=== PATIENT | male | born 1975 | race African-American/Black ===

== ENCOUNTER 2016-09-16 23:15 | Emergency (ER) | payer OTHER ==
[2016-09-16 23:23] VITALS: BP 153/95; PULSE 79; TEMP 98.1; BMI 26.6
--- NOTE | 2016-09-17 00:17 | PDOC ---
History of Present Illness - General Chief Complaint: RX Refill Stated Complaint: RX REFILL Time Seen by Provider: 09/16/16 23:27 History Source: Patient Exam Limitations: No Limitations - History of Present Illness Timing/Duration: 1-3 hours Severity: mild Associated Symptoms: reports: malaise. denies: chest pain, cough, diaphoresis, fever/chills, loss of appetite, nausea/vomiting, shortness of breath, weakness Past History - Travel Traveled outside of the country in the last 30 days: No Close contact w/someone who was outside of country & ill: No - Past Medical History Allergies/Adverse Reactions: Allergies Allergy/AdvReac Type Severity Reaction Status Date / Time No Known Allergies Allergy Verified 09/16/16 23:22 Home Medications: Ambulatory Orders Buprenorphine/Naloxone [Suboxone 8Mg/2Mg Sl Film -] 2 each SL DAILY 09/16/16 Anemia: No Asthma: No Cancer: No Cardiac Disorders: No CVA: No COPD: No CHF: No Diabetes: No GI Disorders: No Disorders: No HTN: No Hypercholesterolemia: No Kidney Stones: No Liver Disease: No Suicide Attempt (Hx): No Seizures: No Thyroid Disease: No - Surgical History Abdominal Surgery: No Appendectomy: No Cardiac Surgery: No Cholecystectomy: No Lung Surgery: No Neurologic Surgery: No Orthopedic Surgery: Yes (tendon repair, left hand) - Reproductive History Testicular Surgery: No - Immunization History Td Vaccination: Yes Immunization Up to Date: Yes - Psycho/Social/Smoking Cessation Hx Anxiety: No Suicidal Ideation: No Smoking Status: Yes Smoking History: Current every day smoker Years of Tobacco Use: 10 Have you smoked in the past 12 months: Yes Number of Cigarettes Smoked Daily: 20 Cigars Per Day: 0 Information on smoking cessation initiated: Yes 'Breaking Loose' booklet given: 09/09/15 Hx Alcohol Use: No Drug/Substance Use Hx: No Substance Use Type: None Hx Substance Use Treatment: Yes Review of Systems - Review of Systems Able to Perform ROS?: Yes Comments:: 09/17/16 00:12 CONSTITUTIONAL: +malaise Absent: fever, chills, diaphoresis, generalized weakness, loss of appetite HEENT: Absent: rhinorrhea, nasal congestion, throat pain, throat swelling, difficulty swallowing, mouth swelling, ear pain, eye pain, visual Changes CARDIOVASCULAR: Absent: chest pain, loss of consciousness, palpitations, irregular heart rate, peripheral edema RESPIRATORY: Absent: cough, shortness of breath, dyspnea with exertion, orthopnea, wheezing, stridor, hemoptysis GASTROINTESTINAL: Absent: abdominal pain, abdominal distension, nausea, vomiting, diarrhea, constipation, melena, hematochezia GENITOURINARY: Absent: dysuria, frequency, urgency, hesitancy, hematuria, flank pain, genital pain MUSCULOSKELETAL: Absent: myalgia, arthralgia, joint swelling SKIN: Absent: rash, itching, pallor HEMATOLOGIC/IMMUNOLOGIC: Absent: easy bleeding, easy bruising, lymphadenopathy, frequent infections ENDOCRINE: Absent: unexplained weight gain, unexplained weight loss, heat intolerance, cold intolerance NEUROLOGIC: Absent: headache, focal weakness or paresthesias, dizziness, unsteady gait, seizure, mental status changes, bladder or bowel incontinence PSYCHIATRIC: Absent: anxiety, depression, suicidal or homicidal ideation, hallucinations. Is the patient limited Green[place]ic proficient: No *Physical Exam - Vital Signs Last Vital Signs Temp Pulse Resp BP Pulse Ox 98.1 F 79 20 153/95 98 09/16/16 23:19 09/16/16 23:19 09/16/16 23:19 09/16/16 23:19 09/16/16 23:19 *DC/Admit/Observation/Transfer Diagnosis at time of Disposition: Medication refill - Discharge Dispostion Disposition: HOME Condition at time of disposition: Fair - Referrals Referrals: Cheryl Frazier [Primary Care Provider] - - Patient Instructions Additional Instructions: Please return to [facility] for you Suboxone refill prescription. You were given one dose of Subxone in the ER tonight. Return back to the emergency department if you are experiencing chest pain, shortness of breath. Progress Note - Progress Note Progress Note: 41-year-old male presents to the emergency department requesting for Suboxone 8- 2mg. patient says he was addicted to Percocet from 2 years ago. 2 years ago, he had a procedure done for his left wrist ganglion cyst, 2 months later he lacerated his left thumb extensor tendon and had it repaired. Patient's been on Suboxone for approximately 8 months. His last prescription was written on 2015. Patient's directions were Suboxone film 82 milligrams sublingual twice a day. Prescription was issued by Cheryl Briscoe:from [facility]. He went to [facility] earlier today but says there were no physicians on staff today and was directed to come to the emergency department. Patient is feeling malaise but denies nausea/vomiting, fever/chills/diarrhea, diaphoresis ,dizziness, lightheadedness, headaches, visual disturbance, sore throat, neck pain, back pains, chest pain, shortness of breath, abdominal pains , extremity numbness or tingling sensation.
[2016-09-17] MEDS ORDERED: BUPRENORPHINE/NALOXONE 8 MG/2 MG FILM PACKET SL ONE (00:21)
== END 2016-09-17 00:59 | disposition home or self-care (01) ==
LOC: SUPCPDRO 23:15 → JER 23:15
DX: Z76.0 Encounter for issue of repeat prescription (principal); F17.210 Nicotine dependence, cigarettes, uncomplicated
CPT/HCPCS: 99282-25

== ENCOUNTER 2018-07-25 15:55 | Inpatient (IN) | payer OTHER ==
--- NOTE | 2018-07-25 20:58 | HP ---
COWS - Scale Resting Pulse: 0= [place] 80 or Below Sweatin=Flushed/Facial Moisture Restless Observation: 1= Difficult to Sit Still Pupil Size: 1= Pupils >than Normal Bone or Joint Aches: 4=Acute Joint/Muscle Pain Runny Nose/ Eye Tearin= Runny Nose/Eyes GI Upset > 30mins: 2= Nausea/Diarrhea Tremor Observation: 2= Slight Tremor Visible Yawning Observation: 1= 1-2x During Session Anxiety or Irritability: 2=Irritable/Anxious Goose Flesh Skin: 0=Smooth Skin COWS Score: 17 CIWA Score - Admission Criteria OASAS Guidelines: Admission for Medically Managed Detox: Requires at least one of the followin. CIWA greater than 12 2. Seizures within the past 24 hours 3. Delirium tremens within the past 24 hours 4. Hallucinations within the past 24 hours 5. Acute intervention needed for co occurring medical disorder 6. Acute intervention needed for co occurring psychiatric disorder 7. Severe withdrawal that cannot be handled at a lower level of care (continued vomiting, continued diarrhea, abnormal vital signs) requiring intravenous medication and/or fluids 8. Admission ROS [facility] - [facility] Chief Complaint: C/O WITHDRAWAL SX'S. SEEKING DETOX TXMENT. Allergies/Adverse Reactions: Allergies Allergy/AdvReac Type Severity Reaction Status Date / Time No Known Allergies Allergy Verified 07/25/18 20:08 History of Present Illness: 43 Y.O. MALE WITH HX/O OPIOID DEPENDENCE HERE FOR DETOX. HE IS SELF REFERRED. LAST HERE 08/2015. C/O WITHDRAWAL SX'S. COWS 17. DENIES ANY SIGNIFICANT PERIOD OF CLEAN TIME. REPORTS HX/O OF SBX MAINTENANCE A LITTLE OVER A MONTH AGO BUT WAS DC FROM THE PROGRAM DUE TO ONGOING USE. 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 DENIES HX/O DRUG OVERDOES, SI/HI/AVH, SEIZURE D/O. PMHX- DENIES PSYCH- DENIES Exam Limitations: No Limitations - Ebola screening Have you traveled outside of the country in the last 21 days: No Have you had contact with anyone from an Ebola affected area: No Have you been sick,other than usual withdrawal symptoms: No Do you have a fever: No - Review of Systems Constitutional: Chills, Malaise, Night Sweats, Changes in sleep EENT: reports: No Symptoms Reported Respiratory: reports: No Symptoms reported Cardiac: reports: No Symptoms Reported GI: reports: Nausea, Poor Appetite, Poor Fluid Intake : reports: No Symptoms Reported Musculoskeletal: reports: Back Pain, Joint Pain Integumentary: reports: No Symptoms Reported Neuro: reports: No Symptoms reported Endocrine: reports: No Symptoms Reported Hematology: reports: No Symptoms Reported Psychiatric: reports: Anxious Other Systems: Reviewed and Negative Patient History - Patient Medical History Hx Anemia: No Hx Asthma: No Hx Chronic Obstructive Pulmonary Disease (COPD): No Hx Cancer: No Hx Cardiac Disorders: No Hx Congestive Heart Failure: No Hx Hypertension: No Hx Hypercholesterolemia: No Hx Pacemaker: No HX Cerebrovascular Accident: No Hx Seizures: No Hx Diabetes: No Hx Gastrointestinal Disorders: No Hx Liver Disease: No Hx Genitourinary Disorders: No Hx Sexually Transmitted Disorders: No Hx Renal Disease (ESRD): No Hx Thyroid Disease: No Hx Human Immunodeficiency Virus (HIV): No Hx Hepatitis C: No Hx Depression: No Hx Suicide Attempt: No Hx Bipolar Disorder: No Hx Schizophrenia: No Other Medical History: DENIES - Patient Surgical History Past Surgical History: Yes Hx Neurologic Surgery: No Hx Cataract Extraction: No Hx Cardiac Surgery: No Hx Lung Surgery: No Hx Breast Surgery: No Hx Breast Biopsy: No Hx Abdominal Surgery: No Hx Appendectomy: No Hx Cholecystectomy: No Hx Genitourinary Surgery: No Hx Section: No Hx Orthopedic Surgery: Yes (tendon repair, left hand) Other Surgical History: cyst removed, left wrist - PPD History Previous Implant?: Yes Documented Results: Negative w/proof Implanted On Prior [facility] Admission?: Yes Date: 09/11/15 Results: 0MM PPD to be Administered?: Yes - Smoking Cessation Smoking history: Current every day smoker Have you smoked in the past 12 months: Yes Aproximately how many cigarettes per day: 20 Cigars Per Day: 0 Hx Chewing Tobacco Use: No Initiated information on smoking cessation: Yes 'Breaking Loose' booklet given: 07/25/18 - Substance & Tx. History Hx Alcohol Use: No Hx Substance Use: Yes Substance Use Type: Opiates Hx Substance Use Treatment: Yes (DOES NOT RECALL) - Substances Abused PERCOCET Route: Oral Frequency: Daily Amount used: 120 MG Age of first use: 38 Date of Last Use: 07/24/18 Family Disease History - Family Disease History Family History: Denies Admission Physical Exam BHS - Physical General Appearance: Yes: Appropriately Dressed, Mild Distress, Tremorous (FELT) , Irritable, Anxious HEENTM: Yes: EOMI, Normal ENT Inspection, Normocephalic, Normal Voice, IMANI, Pharynx Normal, Nasal Congestion Respiratory: Yes: Chest Non-Tender, Lungs Clear, Normal Breath Sounds, No Respiratory Distress, No Accessory Muscle Use Neck: Yes: No masses,lesions,Nodules, Supple, Trachea in good position Breast: Yes: Breast Exam Deferred Cardiology: Yes: Regular Rhythm, S1, S2, Tachycardia Abdominal: Yes: Non Tender, Soft, Increased Bowel Sounds Genitourinary: Yes: Within Normal Limits Back: Yes: Normal Inspection Musculoskeletal: Yes: full range of Motion, Gait Steady Extremities: Yes: Normal Capillary Refill, Normal Range of Motion, Non-Tender, Tremors Neurological: Yes: Fully Oriented, Alert, Motor Strength 5/5 Integumentary: Yes: Warm, Moist Lymphatic: Yes: Within Normal Limits - Diagnostic (1) Nicotine dependence Current Visit: Yes Status: Acute Qualifiers: Nicotine product type: cigarettes Substance use status: uncomplicated Qualified Code(s): F17.210 - Nicotine dependence, cigarettes, uncomplicated (2) At risk for dehydration due to poor fluid intake Current Visit: Yes Status: Acute (3) Opioid dependence with withdrawal Current Visit: Yes Status: Acute (4) Cocaine abuse, uncomplicated Current Visit: Yes Status: Acute Cleared for Admission [facility] - Detox or Rehab [facility] Level of Care: Medically Supervised Detox Regimen/Protocol: Methadone Claeared for Rehab Admission: No [facility] Breath Alcohol Content Breath Alcohol Content: 0 Urine Drug Screen - Results Drug Screen Negative: No Urine Drug Screen Results: KEYLA-Cocaine, OXY-Oxycodone
[2018-07-25] MEDS ORDERED: hydrOXYzine PAMOATE 50 MG CAPSULE (FP) PO PRN (21:14)
[2018-07-25] MEDS ORDERED: MAGNESIUM CITRATE 300 ML BOTTLE PO PRN (21:14)
[2018-07-25] MEDS ORDERED: MENTHOL/PHENOL 1 EACH UD MM PRN (21:14)
[2018-07-25] MEDS ORDERED: MAGNESIUM HYDROX 2400MG/30ML ORAL SUSPENSION 30 ML CUP PO PRN (21:14)
[2018-07-25] MEDS ORDERED: METHADONE HCL 10 MG TABLET (FOR DETOX USE ONLY) PO ONE ×2 (21:14→23:00)
[2018-07-25] MEDS ORDERED: NICOTINE POLACRILEX 2 MG GUM BC PRN (21:14)
[2018-07-25] MEDS ORDERED: IBUPROFEN 400 MG TABLET (FP) PO PRN (21:14)
[2018-07-25] MEDS ORDERED: LOPERAMIDE HCL 2 MG CAPSULE PO PRN (21:14)
[2018-07-25] MEDS ORDERED: P-EPHED 60MG/TRIPROLIDI 2.5MG TABLET PO PRN (21:14)
[2018-07-25] MEDS ORDERED: guaiFENesin/D-METHORPHAN HB 10 ML UNIT-DOSE CUPS PO PRN (21:14)
[2018-07-25] MEDS ORDERED: MAG HYDROX/AL HYDROX/SIMETH 30 ML UNIT-DOSE CUP PO PRN (21:14)
[2018-07-25] MEDS ORDERED: ACETAMINOPHEN 325 MG TABLET (FP) PO PRN (21:14)
[2018-07-25] MEDS ORDERED: ONDANSETRON *ODT* 4 MG TABLET SL PRN (21:16)
[2018-07-25] MEDS: diazePAM 5 MG TABLET PO PRN (21:43)
[2018-07-25] MEDS ORDERED: THIAMINE HCL 100 MG TABLET (FP) PO SCH (22:00)
[2018-07-25] MEDS ORDERED: MELATONIN 5 MG TABLETS PO PRN (22:00)
[2018-07-26] MEDS: diazePAM 5 MG TABLET PO PRN ×2 (02:17→10:42)
[2018-07-26] MEDS ORDERED: PRENATAL VITAMINS W/ FOLIC ACID TABLET (FP) PO SCH (10:00)
[2018-07-26] MEDS ORDERED: NICOTINE 21 MG/24 HOURS TOPICAL PATCH TD SCH (10:00)
[2018-07-26] MEDS ORDERED: METHADONE HCL 10 MG TABLET (FOR DETOX USE ONLY) PO ONE (10:00)
[2018-07-26 10:35] LABS: HEMATOCRIT 44.7 % (35.4-49); HEMOGLOBIN 14.6 GM/dL (11.7-16.9); MCH 29.1 pg (25.7-33.7); MCHC 32.6 g/dl (32.0-35.9); MEAN CELL VOLUME 89.2 fl (80-96); MEAN PLT VOLUME 8.5 fl (7.5-11.1); PLATELET COUNT 314 K/MM3 (134-434); RBC 5.01 M/mm3 (4.00-5.60); WHITE BLOOD COUNT 5.7 K/mm3 (4.0-10.0)
--- NOTE | 2018-07-26 11:11 | PN ---
BHS Progress Note (SOAP) Subjective: patient wants suboxone program
[2018-07-26 11:52] LABS: ALBUMIN 3.4 g/dl (3.4-5.0); ALK PHOS 103 U/L (45-117); ANION GAP 10 MMOL/L (8-16); BILIRUBIN,TOTAL 0.2 mg/dL (0.2-1); BLOOD UREA NITROGEN 22 mg/dL (7-18); CALCIUM 8.5 mg/dL (8.5-10.1); CHLORIDE 108 mmol/L (98-107); CO2 26 mmol/L (21-32); CREATININE 1.2 mg/dL (0.55-1.3); GLUCOSE,RANDOM 104 mg/dL (74-106); POTASSIUM 3.9 mmol/L (3.5-5.1); SGOT/AST 13 U/L (15-37); SGPT/ALT 44 U/L (13-61); SODIUM 143 mmol/L (136-145); TOT PROT 6.1 g/dl (6.4-8.2)
--- NOTE | 2018-07-26 12:52 | EKG ---
Test Reason : Blood Pressure : / mmHG Vent. Rate : 082 BPM Atrial Rate : 082 BPM P-R Int : 138 ms QRS Dur : 086 ms QT Int : 346 ms P-R-T Axes : 069 041 010 degrees QTc Int : 404 ms NORMAL SINUS RHYTHM NORMAL ECG WHEN COMPARED WITH ECG OF 13-APR-1999 10:04, ST NO LONGER ELEVATED IN ANTERIOR LEADS INVERTED T WAVES HAVE REPLACED NONSPECIFIC T WAVE ABNORMALITY IN INFERIOR LEADS Confirmed by BERNIE ALCARAZ, GUS ([id number]) on 07/26/2018 12:51:44 PM Referred By: Confirmed By:GUS GIBSB MD
[2018-07-26 13:30] VITALS: BP 113/67; PULSE 100; TEMP 97
--- NOTE | 2018-07-26 15:35 | DS ---
[facility] Detox Discharge Summary Admission Date: 07/25/18 Discharge Date: 07/26/18 - History Present History: Opioid Dependence Additional Comments: 43 years old male admitted on 07/25/18 for opiate withdrawal stabilization insists to leave the detox unit to have suboxone - Physical Exam Results Vital Signs: Vital Signs Temperature 97 F L 07/26/18 13:29 Pulse Rate 100 H 07/26/18 13:29 Respiratory Rate 20 07/26/18 13:29 Blood Pressure 113/67 07/26/18 13:29 O2 Sat by Pulse Oximetry (%) Pertinent Admission Physical Exam Findings: opiate withdrawal sx - Treatment Hospital Course: Detox Protocol Followed, Responded well Patient has Accepted a Rehab Referral to: suboxone maintenance program as per counselor arranged - Medication Discharge Medications: Ambulatory Orders Buprenorphine/Naloxone [Suboxone 8Mg/2Mg Sl Film -] 2 each SL DAILY 09/16/16 - Diagnosis (1) Nicotine dependence Status: Acute Qualifiers: Nicotine product type: cigarettes Substance use status: in withdrawal Qualified Code(s): F17.213 - Nicotine dependence, cigarettes, with withdrawal (2) Opioid dependence with withdrawal Status: Acute - AMA Did Patient Leave Against Medical Advice: Yes
[2018-07-26 19:07] LABS: URINE APPEARANCE TURBID; URINE BILIRUBIN NEGATIVE (<2.0 mg/dL); URINE COLOR AMBER; URINE GLUCOSE (UA) NEGATIVE (NEGATIVE); URINE KETONE NEGATIVE (NEGATIVE); URINE LEUK ESTERASE NEGATIVE (NEGATIVE); URINE NITRITE NEGATIVE (NEGATIVE); URINE PROTEIN NEGATIVE (NEGATIVE); URINE UROBILINOGEN NEGATIVE mg/dL (0.2-1.0)
[2018-07-27] MEDS ORDERED: METHADONE HCL 5 MG TABLET (FOR DETOX USE ONLY) PO ONE (10:00)
[2018-07-28] MEDS ORDERED: METHADONE HCL 5 MG TABLET (FOR DETOX USE ONLY) PO ONE (10:00)
[2018-07-29] MEDS ORDERED: METHADONE HCL 10 MG TABLET (FOR DETOX USE ONLY) PO ONE (10:00)
[2018-07-30] MEDS ORDERED: METHADONE HCL 5 MG TABLET (FOR DETOX USE ONLY) PO ONE (06:00)
== END 2018-07-26 13:49 | disposition left against medical advice (07) | DRG 770 ==
LOC: YASAS 15:55 → Y3N 18:34
PROC: HZ2ZZZZ Detoxification Services for Substance Abuse Treatment (ICD-10-PCS; principal; 2018-07-25)
DX: F11.23 Opioid dependence with withdrawal (principal); F14.10 Cocaine abuse, uncomplicated; F17.210 Nicotine dependence, cigarettes, uncomplicated; Z91.89 Other specified personal risk factors, not elsewhere classified
CPT/HCPCS: 36415; 80053; 81003; 85027; 86593; 93005; 93010

== ENCOUNTER 2019-09-10 08:54 | Inpatient (IN) | payer OTHER ==
[2019-09-10 10:01] VITALS: BMI 27.2
--- NOTE | 2019-09-10 10:52 | HP ---
COWS - Scale Resting Pulse: 0= [place] 80 or Below Sweatin=Flushed/Facial Moisture Restless Observation: 0= Sits Still Pupil Size: 2= Moderately Dilated Bone or Joint Aches: 1= Mild Discomfort Runny Nose/ Eye Tearin= Nasal Congestion GI Upset > 30mins: 1= Stomach Cramp Tremor Observation: 1= Tremor [place], Not Seen Yawning Observation: 0= None Anxiety or Irritability: 1=Feels Anxious/Irritable Goose Flesh Skin: 0=Smooth Skin COWS Score: 9 CIWA Score - Admission Criteria OASAS Guidelines: Admission for Medically Managed Detox: Requires at least one of the followin. CIWA greater than 12 2. Seizures within the past 24 hours 3. Delirium tremens within the past 24 hours 4. Hallucinations within the past 24 hours 5. Acute intervention needed for co occurring medical disorder 6. Acute intervention needed for co occurring psychiatric disorder 7. Severe withdrawal that cannot be handled at a lower level of care (continued vomiting, continued diarrhea, abnormal vital signs) requiring intravenous medication and/or fluids 8. Admitting History and Physical - Admission Chief Complaint: Mr. Cullen is a 44 yo gentleman who has a H of opiate use disorder who presents today requesting admission to detox for use of Heroin, crack cocaine and tobacco. He was treated here in July 2018 for opiate use disorder. He was then at [facility] in September 2018. He states that he has been using street methadone. History of Present Illness: Mr Cullen reports suing Heroin, 2 bundles twice per week. He last used heroin last night. He first used heroin this year. He uses crack cocaine, last use last night and first use a few months ago. He smokes cigarettes, one pack per day. He began smoking at the age of 15 y. His last cigarette was just prior to entering this facility. He uses street methadone. He does not drink alcohol. - Smoking History Smoking history: Current every day smoker Have you smoked in the past 12 months: Yes Aproximately how many cigarettes per day: 20 - Alcohol/Substance Use Hx Alcohol Use: No Admission ROS [facility] Chief Complaint: Mr. Cullen is a 44 yo gentleman who requests admission to detox for use of heroin, crack cocaine and tobacco Allergies/Adverse Reactions: Allergies Allergy/AdvReac Type Severity Reaction Status Date / Time No Known Allergies Allergy Verified 09/10/19 09:56 - Ebola screening Have you traveled outside of the country in the last 21 days: No Have you had contact with anyone from an Ebola affected area: No Do you have a fever: No Patient History - Patient Medical History Hx Anemia: No Hx Asthma: No Hx Chronic Obstructive Pulmonary Disease (COPD): No Hx Cancer: No Hx Cardiac Disorders: No Hx Congestive Heart Failure: No Hx Hypertension: No Hx Hypercholesterolemia: No Hx Pacemaker: No HX Cerebrovascular Accident: No Hx Seizures: No Hx Diabetes: No Hx Gastrointestinal Disorders: No Hx Liver Disease: No Hx Genitourinary Disorders: No Hx Sexually Transmitted Disorders: No Hx Renal Disease (ESRD): No Hx Thyroid Disease: No Hx Human Immunodeficiency Virus (HIV): No Hx Hepatitis C: No Hx Depression: No Hx Suicide Attempt: No Hx Bipolar Disorder: No Hx Schizophrenia: No - Patient Surgical History Past Surgical History: Yes Hx Neurologic Surgery: No Hx Cataract Extraction: No Hx Cardiac Surgery: No Hx Lung Surgery: No Hx Breast Surgery: No Hx Breast Biopsy: No Hx Abdominal Surgery: No Hx Appendectomy: No Hx Cholecystectomy: No Hx Genitourinary Surgery: No Hx Section: No Hx Orthopedic Surgery: Yes (tendon repair, left hand) Other Surgical History: cyst removed, left wrist Anesthesia Reaction: No - PPD History Previous Implant?: No Date: 09/11/15 Results: 0MM - Reproductive History Patient is a Female of Child Bearing Age (11 -55 yrs old): No - Smoking Cessation Smoking history: Current every day smoker Have you smoked in the past 12 months: Yes Aproximately how many cigarettes per day: 20 Cigars Per Day: 0 Hx Chewing Tobacco Use: No Initiated information on smoking cessation: Yes 'Breaking Loose' booklet given: 09/10/19 - Substance & Tx. History Hx Alcohol Use: No Hx Substance Use: Yes Substance Use Type: Cocaine, Heroin Hx Substance Use Treatment: Yes - Substances abused Cocaine Substance route: Smoking Frequency: 1-2 times per week Amount used: 3 grams Age of first use: 44 Date of last use: 09/10/19 Heroin Substance route: Smoking Frequency: 1-2 times per week Amount used: 2 bundles Age of first use: 44 Date of last use: 09/10/19 Admission Physical Exam BHS - Vital Signs Vital Signs: Vital Signs - 24 hr 01/28/20 09:56 Temperature 97.3 F L Pulse Rate 73 Respiratory 18 Rate Blood Pressure 133/96 - Physical General Appearance: Yes: Nourished, Appropriately Dressed HEENTM: Yes: EOMI, Hearing grossly Normal, Normocephalic, IMANI, Pharynx Normal Respiratory: Yes: Lungs Clear, Normal Breath Sounds Neck: Yes: Within Normal Limits, No masses,lesions,Nodules Breast: Yes: Breast Exam Deferred Cardiology: Yes: Regular Rhythm, Regular Rate Abdominal: Yes: Non Tender, Soft Genitourinary: Yes: Within Normal Limits Back: Yes: Normal Inspection Musculoskeletal: Yes: full range of Motion, Gait Steady Extremities: Yes: Normal Inspection, Normal Range of Motion Neurological: Yes: Fully Oriented, Alert, Normal Mood/Affect Integumentary: Yes: Normal Color, Dry, Warm, Other (nails are dry and thickened) Lymphatic: Yes: Within Normal Limits Breathalyzer - Breathalyzer Breathalyzer: 0 Vital Signs - Vital Signs Vital signs refused: No Temperature: 97.3 F Pulse Rate: 73 Respiratory Rate: 18 Blood Pressure: 133/96 BP Location: Left Arm Blood Pressure position: Sitting - Height Height: 6 ft 2 in - Weight Weight: 212 lb Weight measurement method: Standing scale - BMI Body Mass Index (BMI): 27.2 - Bowel Function Bowel Movement: Yes (yesterday) Urine Drug Screen - Test Device Lot number: [id number] Expiration date: 01/11/21 - Control Is test valid?: Yes - Results Drug screen NEGATIVE: No Urine drug screen results: KEYLA-Cocaine, MTD-Methadone Inpatient Rehab Admission - Rehab Decision to Admit Inpatient rehab admission?: No - Initial Determination Are CD services needed?: No Free of communicable disease: Yes Not in need of hospitalization: Yes
[2019-09-10] MEDS ORDERED: MENTHOL/PHENOL 1 EACH UD MM PRN (11:03)
[2019-09-10] MEDS ORDERED: MAG HYDROX/AL HYDROX/SIMETH 30 ML UNIT-DOSE CUP PO PRN (11:03)
[2019-09-10] MEDS ORDERED: BISMUTH SUBSALICYLATE 262 MG/15 ML BTL PO PRN (11:03)
[2019-09-10] MEDS ORDERED: ACETAMINOPHEN 325 MG TABLET (FP) PO PRN ×2 (11:03)
[2019-09-10] MEDS ORDERED: MAGNESIUM CITRATE 300 ML BOTTLE PO PRN (11:03)
[2019-09-10] MEDS ORDERED: MAGNESIUM HYDROX 2400MG/30ML ORAL SUSPENSION 30 ML CUP PO PRN (11:03)
[2019-09-10] MEDS ORDERED: IBUPROFEN 400 MG TABLET (FP) PO PRN (11:03)
[2019-09-10] MEDS ORDERED: METHADONE HCL 10 MG TABLET (FOR DETOX USE ONLY) PO ONE (11:25)
[2019-09-10] MEDS: NICOTINE 21 MG/24 HOURS TOPICAL PATCH TD SCH (12:16)
[2019-09-10] MEDS: cloNIDine HCL 0.1 MG TABLET PO PRN ×2 (12:39→22:17)
[2019-09-10] MEDS: hydrOXYzine PAMOATE 25 MG CAPSULE (FP) PO PRN ×2 (12:39→22:17)
[2019-09-10 15:05] LABS: ALBUMIN 3.7 g/dl (3.4-5.0); BILIRUBIN,TOTAL 0.2 mg/dL (0.2-1); BLOOD UREA NITROGEN 16.2 mg/dL (7-18); CALCIUM 8.6 mg/dL (8.5-10.1); CREATININE 1.1 mg/dL (0.55-1.3); POTASSIUM 3.8 mmol/L (3.5-5.1); TOT PROT 6.7 g/dl (6.4-8.2)
[2019-09-10 15:07] LABS: HEMATOCRIT 44.4 % (35.4-49); HEMOGLOBIN 14.6 GM/dL (11.7-16.9); MCH 29.5 pg (25.7-33.7); MEAN CELL VOLUME 89.5 fl (80-96); MEAN PLT VOLUME 8.2 fl (7.5-11.1); PLATELET COUNT 388 K/MM3 (134-434); RBC 4.96 M/mm3 (4.00-5.60); RDW 13.9 % (11.9-15.9); WHITE BLOOD COUNT 4.6 K/mm3 (4.0-10.0)
[2019-09-10] MEDS: THIAMINE HCL 100 MG TABLET (FP) PO SCH (22:17)
[2019-09-10] MEDS: MELATONIN 5 MG TABLETS PO PRN (22:18)
[2019-09-11] MEDS ORDERED: METHADONE HCL 5 MG TABLET (FOR DETOX USE ONLY) ONE (09:09)
[2019-09-11] MEDS ORDERED: METHADONE HCL 10 MG TABLET (FOR DETOX USE ONLY) ONE (09:09)
[2019-09-11] MEDS ORDERED: METHADONE (DETOX) 20 MG, METHADONE (DETOX) 5 MG PO ONE (10:00)
[2019-09-11] MEDS: PRENATAL VITAMINS W/ FOLIC ACID TABLET (FP) PO SCH (10:26)
[2019-09-11] MEDS: NICOTINE 21 MG/24 HOURS TOPICAL PATCH TD SCH (10:26)
[2019-09-11] MEDS: cloNIDine HCL 0.1 MG TABLET PO PRN ×2 (10:28→18:48)
[2019-09-11] MEDS: hydrOXYzine PAMOATE 25 MG CAPSULE (FP) PO PRN ×2 (10:28→18:48)
--- NOTE | 2019-09-11 11:00 | PN ---
BHS COWS - Scale Resting Pulse: 1= [place] 81-100 Sweatin= Chills/Flushing Restless Observation: 0= Sits Still Pupil Size: 1= Pupils >than Normal Bone or Joint Aches: 0= None Runny Nose/ Eye Tearin= None GI Upset > 30mins: 0= None Tremor Observation of Outstretched Hands: 2= Slight Tremor Visible Yawning Observation: 0= None Anxiety or Irritability: 0= None Goose Flesh Skin: 3=Piloe[place] COWS Score: 8 BHS Progress Note (SOAP) Subjective: 44 years old male admitted on 09/10/19 for opiate withdrawal sx management treating with methadone detox regiment reports finger nails and toe nails chronic fungal infection x 15+ years yellowish nail beds noted power like nail tips clotrimazole to all hands and feet Objective: 09/11/19 11:17 Vital Signs Temperature 97.5 F L 09/11/19 08:48 Pulse Rate 79 09/11/19 08:48 Respiratory Rate 18 09/11/19 08:48 Blood Pressure 137/85 09/11/19 08:48 O2 Sat by Pulse Oximetry (%) Laboratory Last Values WBC 4.6 K/mm3 (4.0-10.0) 09/10/19 11:50 RBC 4.96 M/mm3 (4.00-5.60) 09/10/19 11:50 Hgb 14.6 GM/dL (11.7-16.9) 09/10/19 11:50 Hct 44.4 % (35.4-49) 09/10/19 11:50 MCV 89.5 fl (80-96) 09/10/19 11:50 MCH 29.5 pg (25.7-33.7) 09/10/19 11:50 MCHC 33.0 g/dl (32.0-35.9) 09/10/19 11:50 RDW 13.9 % (11.9-15.9) 09/10/19 11:50 Plt Count 388 K/MM3 (134-434) D 09/10/19 11:50 MPV 8.2 fl (7.5-11.1) 09/10/19 11:50 Sodium 140 mmol/L (136-145) 09/10/19 11:50 Potassium 3.8 mmol/L (3.5-5.1) 09/10/19 11:50 Chloride 105 mmol/L (98-107) 09/10/19 11:50 Carbon Dioxide 31 mmol/L (21-32) 09/10/19 11:50 Anion Gap 4 MMOL/L (8-16) L 09/10/19 11:50 BUN 16.2 mg/dL (7-18) 09/10/19 11:50 Creatinine 1.1 mg/dL (0.55-1.3) 09/10/19 11:50 Est GFR (CKD-EPI)AfAm 94.13 09/10/19 11:50 Est GFR (CKD-EPI)NonAf 81.21 09/10/19 11:50 Random Glucose 86 mg/dL (74-106) 09/10/19 11:50 Calcium 8.6 mg/dL (8.5-10.1) 09/10/19 11:50 Total Bilirubin 0.2 mg/dL (0.2-1) 09/10/19 11:50 AST 10 U/L (15-37) L 09/10/19 11:50 ALT 23 U/L (13-61) 09/10/19 11:50 Alkaline Phosphatase 105 U/L (45-117) 09/10/19 11:50 Total Protein 6.7 g/dl (6.4-8.2) 09/10/19 11:50 Albumin 3.7 g/dl (3.4-5.0) 09/10/19 11:50 RPR Titer Nonreactive (NONREACTIVE) 09/10/19 11:50 lab noted Assessment: 09/11/19 11:17 opiate withdrawal Plan: methadone regimen
[2019-09-11] MEDS: CLOTRIMAZOLE 1% CREAM 15 GM TUBE TP SCH ×3 (13:30→22:11)
[2019-09-11] MEDS: METHOCARBAMOL 500 MG TABLET PO PRN (18:48)
[2019-09-11] MEDS: THIAMINE HCL 100 MG TABLET (FP) PO SCH (22:11)
[2019-09-11] MEDS: MELATONIN 5 MG TABLETS PO PRN (22:12)
[2019-09-12] MEDS: cloNIDine HCL 0.1 MG TABLET PO PRN ×3 (05:54→22:10)
[2019-09-12] MEDS: hydrOXYzine PAMOATE 25 MG CAPSULE (FP) PO PRN ×3 (05:56→22:08)
[2019-09-12] MEDS: METHOCARBAMOL 500 MG TABLET PO PRN ×3 (05:56→22:08)
[2019-09-12] MEDS ORDERED: METHADONE HCL 10 MG TABLET (FOR DETOX USE ONLY) PO ONE (10:00)
[2019-09-12] MEDS: PRENATAL VITAMINS W/ FOLIC ACID TABLET (FP) PO SCH (10:29)
[2019-09-12] MEDS: CLOTRIMAZOLE 1% CREAM 15 GM TUBE TP SCH ×4 (10:29→22:12)
[2019-09-12] MEDS: NICOTINE 21 MG/24 HOURS TOPICAL PATCH TD SCH (10:31)
--- NOTE | 2019-09-12 10:37 | PN ---
BHS COWS - Scale Resting Pulse: 1= [place] 81-100 Sweatin= Chills/Flushing Restless Observation: 0= Sits Still Pupil Size: 1= Pupils >than Normal Bone or Joint Aches: 1= Mild Discomfort Runny Nose/ Eye Tearin= Nasal Congestion GI Upset > 30mins: 0= None Tremor Observation of Outstretched Hands: 1= Tremor [place], Not Seen Yawning Observation: 0= None Anxiety or Irritability: 1=Feels Anxious/Irritable Goose Flesh Skin: 0=Smooth Skin COWS Score: 7 BHS Progress Note (SOAP) Subjective: 44 years old male admitted on 09/10/19 for opiate withdrawal sx management treating with methadone detox regiment doing ok today encourage consistently using clotrimazole topical cream to toe nails and finger nail Objective: 09/12/19 10:40 Vital Signs Temperature 97.3 F L 09/12/19 08:47 Pulse Rate 85 09/12/19 08:47 Respiratory Rate 18 09/12/19 08:47 Blood Pressure 125/83 09/12/19 08:47 O2 Sat by Pulse Oximetry (%) Laboratory Last Values WBC 4.6 K/mm3 (4.0-10.0) 09/10/19 11:50 RBC 4.96 M/mm3 (4.00-5.60) 09/10/19 11:50 Hgb 14.6 GM/dL (11.7-16.9) 09/10/19 11:50 Hct 44.4 % (35.4-49) 09/10/19 11:50 MCV 89.5 fl (80-96) 09/10/19 11:50 MCH 29.5 pg (25.7-33.7) 09/10/19 11:50 MCHC 33.0 g/dl (32.0-35.9) 09/10/19 11:50 RDW 13.9 % (11.9-15.9) 09/10/19 11:50 Plt Count 388 K/MM3 (134-434) D 09/10/19 11:50 MPV 8.2 fl (7.5-11.1) 09/10/19 11:50 Sodium 140 mmol/L (136-145) 09/10/19 11:50 Potassium 3.8 mmol/L (3.5-5.1) 09/10/19 11:50 Chloride 105 mmol/L (98-107) 09/10/19 11:50 Carbon Dioxide 31 mmol/L (21-32) 09/10/19 11:50 Anion Gap 4 MMOL/L (8-16) L 09/10/19 11:50 BUN 16.2 mg/dL (7-18) 09/10/19 11:50 Creatinine 1.1 mg/dL (0.55-1.3) 09/10/19 11:50 Est GFR (CKD-EPI)AfAm 94.13 09/10/19 11:50 Est GFR (CKD-EPI)NonAf 81.21 09/10/19 11:50 Random Glucose 86 mg/dL (74-106) 09/10/19 11:50 Calcium 8.6 mg/dL (8.5-10.1) 09/10/19 11:50 Total Bilirubin 0.2 mg/dL (0.2-1) 09/10/19 11:50 AST 10 U/L (15-37) L 09/10/19 11:50 ALT 23 U/L (13-61) 09/10/19 11:50 Alkaline Phosphatase 105 U/L (45-117) 09/10/19 11:50 Total Protein 6.7 g/dl (6.4-8.2) 09/10/19 11:50 Albumin 3.7 g/dl (3.4-5.0) 09/10/19 11:50 RPR Titer Nonreactive (NONREACTIVE) 09/10/19 11:50 lab noted Assessment: 09/12/19 10:41 opiate withdrawal Plan: methadone regiment
[2019-09-12] MEDS: THIAMINE HCL 100 MG TABLET (FP) PO SCH (22:08)
[2019-09-12] MEDS: MELATONIN 5 MG TABLETS PO PRN (22:08)
[2019-09-13] MEDS: METHOCARBAMOL 500 MG TABLET PO PRN ×2 (06:33→22:05)
[2019-09-13] MEDS: hydrOXYzine PAMOATE 25 MG CAPSULE (FP) PO PRN ×2 (06:33→22:05)
[2019-09-13] MEDS ORDERED: METHADONE HCL 5 MG TABLET (FOR DETOX USE ONLY) ONE (09:20)
[2019-09-13] MEDS ORDERED: METHADONE HCL 10 MG TABLET (FOR DETOX USE ONLY) ONE (09:20)
[2019-09-13] MEDS ORDERED: METHADONE (DETOX) 10 MG, METHADONE (DETOX) 5 MG PO ONE (10:00)
[2019-09-13] MEDS: PRENATAL VITAMINS W/ FOLIC ACID TABLET (FP) PO SCH (10:24)
[2019-09-13] MEDS: NICOTINE 21 MG/24 HOURS TOPICAL PATCH TD SCH (10:25)
[2019-09-13] MEDS: CLOTRIMAZOLE 1% CREAM 15 GM TUBE TP SCH ×4 (10:25→22:06)
--- NOTE | 2019-09-13 12:54 | PN ---
S COWS - Scale Resting Pulse: 0= SC 80 or Below Sweatin= Chills/Flushing Restless Observation: 1= Difficult to Sit Still Pupil Size: 0= Normal to Room Light Bone or Joint Aches: 1= Mild Discomfort Runny Nose/ Eye Tearin= None GI Upset > 30mins: 0= None Tremor Observation of Outstretched Hands: 0= None Yawning Observation: 0= None Anxiety or Irritability: 0= None Goose Flesh Skin: 0=Smooth Skin COWS Score: 3 S Progress Note (SOAP) Subjective: Pt would like to be discharged today, would like to go to [facility]. Mild back pain Objective: 09/13/19 12:51 Vital Signs - 24 hr 09/12/19 09/12/19 09/12/19 12:52 18:36 21:01 Temperature 97.6 F 97.9 F 97.1 F L Pulse Rate 64 68 66 Respiratory 18 17 18 Rate Blood Pressure 103/70 123/83 130/84 09/13/19 09/13/19 09/13/19 00:30 03:30 06:58 Temperature 97.9 F Pulse Rate 67 Respiratory 18 18 18 Rate Blood Pressure 116/72 09/13/19 08:51 Temperature 97.9 F Pulse Rate 78 Respiratory 16 Rate Blood Pressure 107/74 Laboratory Tests 09/10/19 09/10/19 09/10/19 11:50 11:50 11:50 WBC 4.6 RBC 4.96 Hgb 14.6 Hct 44.4 MCV 89.5 MCH 29.5 MCHC 33.0 RDW 13.9 Plt Count 388 D MPV 8.2 Sodium 140 Potassium 3.8 Chloride 105 Carbon Dioxide 31 Anion Gap 4 L BUN 16.2 Creatinine 1.1 Est GFR (CKD-EPI)AfAm 94.13 Est GFR (CKD-EPI)NonAf 81.21 Random Glucose 86 Calcium 8.6 Total Bilirubin 0.2 AST 10 L ALT 23 Alkaline Phosphatase 105 Total Protein 6.7 Albumin 3.7 RPR Titer Nonreactive Gnl: WDWN, in no distress MS: awake, alert, follows complex commands, nl language function Motor: symmetric limb motion Gait: normal 09/13/19 12:52 Assessment: 09/13/19 12:53 1. Opioid withdrawal Plan: 1. Methadone protocol 2. Have counselor discuss discharge plans
[2019-09-13 21:24] VITALS: TEMP 97.9
[2019-09-13] MEDS: THIAMINE HCL 100 MG TABLET (FP) PO SCH (22:05)
[2019-09-13] MEDS: MELATONIN 5 MG TABLETS PO PRN (22:05)
[2019-09-14] MEDS ORDERED: METHADONE HCL 10 MG TABLET (FOR DETOX USE ONLY) PO ONE ×2 (06:00→10:00)
[2019-09-14] MEDS: hydrOXYzine PAMOATE 25 MG CAPSULE (FP) PO PRN (06:03)
[2019-09-14 06:47] VITALS: BP 113/72; PULSE 63
[2019-09-15] MEDS ORDERED: METHADONE HCL 5 MG TABLET (FOR DETOX USE ONLY) PO ONE (06:00)
== END 2019-09-14 07:27 | disposition home or self-care (01) | DRG 773 ==
LOC: YASAS 08:54 → UNDOADMIN 10:19 → Y3N 10:19
PROVIDERS: ADMIT Allergy & Immunology; ATTEND Allergy & Immunology
PROC: HZ2ZZZZ Detoxification Services for Substance Abuse Treatment (ICD-10-PCS; principal; 2019-09-10)
DX: F11.23 Opioid dependence with withdrawal (principal); F17.210 Nicotine dependence, cigarettes, uncomplicated
CPT/HCPCS: 36415; 80053; 85027; 86593; J0735

== ENCOUNTER 2020-10-30 01:27 | Inpatient (IN) | payer OTHER ==
[2020-10-30] MEDS ORDERED: RAPID SEQUENCE INTUBATION KIT NR ONE (01:38)
[2020-10-30] MEDS ORDERED: GLUCAGON 1 MG KIT IVPUSH ONE (01:58)
[2020-10-30] MEDS ORDERED: PROPOFOL 1,000,000 MCG/100 ML VIAL ONE (01:58)
[2020-10-30] MEDS ORDERED: ROCURONIUM BROMIDE 50 MG/5 ML VIAL IVPUSH ONE (01:58)
[2020-10-30] MEDS ORDERED: CALCIUM GLUCONATE 10% - 1,000 MG/10 ML VIAL IVPB ONE (01:58)
[2020-10-30] MEDS ORDERED: ETOMIDATE 40 MG/20 ML VIAL IVPUSH ONE (01:58)
[2020-10-30] MEDS ORDERED: INSULIN REGULAR HUMAN 100 UNITS/ML *VIAL IVPUSH ONE (01:59)
[2020-10-30] MEDS ORDERED: DEXTROSE 50%-WATER - 25 GM/50 ML VIAL IVPUSH ONE (01:59)
[2020-10-30] MEDS ORDERED: PROPOFOL 1,000,000 MCG/100 ML VIAL IVPB SCH (02:00)
[2020-10-30 02:22] LABS: HEMATOCRIT 52.8 % (35.4-49); HEMOGLOBIN 16.5 GM/dL (11.7-16.9); MCH 29.4 pg (25.7-33.7); MCHC 31.3 g/dl (32.0-35.9); MEAN CELL VOLUME 94.2 fl (80-96); MEAN PLT VOLUME 8.4 fl (7.5-11.1); PLATELET COUNT 247 K/MM3 (134-434); RBC 5.61 M/mm3 (4.00-5.60); RDW 14.8 % (11.9-15.9); WHITE BLOOD COUNT 20.6 K/mm3 (4.0-10.0)
[2020-10-30] MEDS ORDERED: NALOXONE HCL 0.4 MG/ML VIAL IVPUSH ONE (02:28)
[2020-10-30 02:29] LABS: VENOUS BASE EXCESS -21.5 mmol/L (-2-2)
[2020-10-30 02:40] LABS: EPI CELLS 9 /uL (0-25.1); HYALINE CASTS 29 /uL (0-3.1); URINE APPEARANCE CLOUDY; URINE BACTERIA 637 /uL (0-1359); URINE BILIRUBIN NEGATIVE (NEGATIVE); URINE COLOR YELLOW; URINE GLUCOSE (UA) TRACE (NEGATIVE); URINE KETONE NEGATIVE (NEGATIVE); URINE LEUK ESTERASE TRACE (NEGATIVE); URINE NITRITE NEGATIVE (NEGATIVE); URINE PROTEIN 3+ (NEGATIVE); URINE RBC 23 /uL (0-23.9); URINE UROBILINOGEN 0.2 mg/dL (0.2-1.0); URINE WBC 622 /uL (0-25.8)
[2020-10-30 02:43] LABS: INR 0.98 (0.83-1.09); PROTHROMBIN TIME (PATIENT) 11.9 SEC (9.7-13.0)
[2020-10-30 02:45] LABS: ACTIVATED PTT 44.3 SECONDS (25.2-36.5); VENOUS PCO2 129.9 mmHg (38-52)
[2020-10-30 02:46] LABS: VENOUS PH 6.749 (7.310-7.410)
[2020-10-30 02:47] LABS: POTASSIUM 4.8 mmol/L (3.5-5.1)
[2020-10-30 02:49] LABS: ALBUMIN 4.3 g/dl (3.4-5.0); BLOOD UREA NITROGEN 16.8 mg/dL (7-18); CALCIUM 10.1 mg/dL (8.5-10.1)
[2020-10-30 02:50] LABS: PHENCYCLIDINE,URINE NEGATIVE ng/ml (CUTOFF=25); URINE AMPHETAMINES NEGATIVE ng/ml (CUTOFF=500)
[2020-10-30 02:52] LABS: CREATININE 3.5 mg/dL (0.55-1.3)
[2020-10-30 02:54] LABS: BILIRUBIN,TOTAL 0.4 mg/dL (0.2-1); TOT PROT 7.9 g/dl (6.4-8.2)
[2020-10-30 03:01] LABS: METHADONE, UR NEGATIVE ng/ml (CUTOFF=300); URINE BARBITURATES NEGATIVE ng/ml (CUTOFF=200); URINE BENZODIAZEPINES NEGATIVE ng/ml (CUTOFF=200)
[2020-10-30 03:01] LABS: ARTERIAL BLOOD GAS BASE EXCESS -18.9 mmol/L (-2-2); ARTERIAL BLOOD GAS PO2 105.1 mmHg (80-100)
[2020-10-30 03:05] LABS: ALLENS TEST POSITIVE
[2020-10-30 03:06] LABS: ARTERIAL BLOOD GAS pH 6.975 (7.350-7.450); VENT MODE A/C; VENT RATE 16
[2020-10-30] MEDS ORDERED: GLUCAGON 1 MG KIT ONE (03:24)
[2020-10-30] MEDS ORDERED: CALCIUM GLUC IN NACL, ISO-OSM 1 GM/50 ML BAG IVPB ONE (03:24)
[2020-10-30] MEDS ORDERED: DEXTROSE 50%-WATER 25 GM/50 ML DISP.SYRIN ONE (03:25)
[2020-10-30 04:05] LABS: LACTIC ACID 16.5 mmol/L (0.4-2.0)
[2020-10-30 04:10] LABS: COCAINE, UR POSITIVE ng/ml (CUTOFF=300)
[2020-10-30 04:11] LABS: OPIATES, URI POSITIVE ng/ml (CUTOFF=300)
[2020-10-30] MEDS ORDERED: SODIUM BICARBONATE 8.4% - 75 MEQ in SODIUM CHLORIDE 0.45% 950 ML IV SCH (04:15)
[2020-10-30] MEDS ORDERED: SODIUM CHLORIDE 1,000 ML IV STA (04:22)
[2020-10-30] MEDS ORDERED: SODIUM CHLORIDE 1,000 ML IV SCH (04:30)
[2020-10-30] MEDS ORDERED: PIPERACILLIN/TAZOB 2.25 GM 2.25 GM in DEXTROSE 5%-WATER - 50 ML IVPB SCH (05:00)
[2020-10-30] MEDS ORDERED: PIPERACILLIN/TAZOB 3.375 GM 3.375 GM in DEXTROSE 5%-WATER - 50 ML IVPB SCH (05:00)
[2020-10-30] MEDS ORDERED: MIDAZOLAM IN 0.9 % SOD.CHLORID 1 MG/1 ML PLAST..BAG ONE (05:31)
[2020-10-30] MEDS ORDERED: HEPARIN NA (PORCINE) 5,000 UNITS/ML 1ML VIAL SQ SCH (06:00)
[2020-10-30 06:36] LABS: ARTERIAL BLD GAS O2 SATURATION 99.1 mmHg (95-98); ARTERIAL BLOOD GAS BASE EXCESS -8.4 mmol/L (-2-2); ARTERIAL BLOOD GAS pH 7.275 (7.350-7.450)
[2020-10-30 06:37] LABS: ALLENS TEST POSITIVE
[2020-10-30 06:38] LABS: VENT MODE A/C; VENT RATE 25
[2020-10-30] MEDS: NOREPINEPHRINE BITARTRATE 16,000 MCG in SODIUM CHLORIDE 484 ML IV SCH (06:45)
[2020-10-30 07:16] LABS: BASO % 0.1 % (0-2.0); EOS % 0.1 % (0-4.5); HEMATOCRIT 43.4 % (35.4-49); HEMOGLOBIN 14.4 GM/dL (11.7-16.9); LYMPH % 13.4 % (8-40); MCH 29.7 pg (25.7-33.7); MCHC 33.2 g/dl (32.0-35.9); MEAN CELL VOLUME 89.6 fl (80-96); MEAN PLT VOLUME 7.7 fl (7.5-11.1); MONO % 4.5 % (3.8-10.2); NEUT % 81.9 % (42.8-82.8); PLATELET COUNT 150 K/MM3 (134-434); RBC 4.84 M/mm3 (4.00-5.60); WHITE BLOOD COUNT 17.3 K/mm3 (4.0-10.0)
[2020-10-30 07:31] LABS: CHLORIDE 114 mmol/L (98-107); POTASSIUM 4.4 mmol/L (3.5-5.1); SODIUM 145 mmol/L (136-145)
[2020-10-30 07:34] LABS: ANION GAP 9 MMOL/L (8-16); BLOOD UREA NITROGEN 21.5 mg/dL (7-18); CO2 22 mmol/L (21-32); GLUCOSE,RANDOM 52 mg/dL (74-106); MAGNESIUM 2.2 mg/dL (1.8-2.4)
[2020-10-30 07:36] LABS: CREATININE 2.8 mg/dL (0.55-1.3); SGOT/AST 397 U/L (15-37); SGPT/ALT 443 U/L (13-61)
[2020-10-30 07:37] LABS: PHOSPHOROUS 4.7 mg/dL (2.5-4.9)
[2020-10-30 07:38] LABS: BILIRUBIN,TOTAL 0.3 mg/dL (0.2-1)
[2020-10-30 07:41] LABS: LACTIC ACID 6.3 mmol/L (0.4-2.0)
[2020-10-30] MEDS ORDERED: PHENYLEPHRINE HCL 10 MG/1 ML SINGLE DOSE VIAL ONE (07:44)
[2020-10-30] MEDS ORDERED: PHENYLEPHRINE NS PREMIX 10,000 MCG/100 ML BAG CVP SCH (07:45)
[2020-10-30] MEDS ORDERED: SODIUM CHLORIDE 0.9% 500 ML INFUS.BAG IV ONE (07:54)
[2020-10-30 07:57] LABS: ALK PHOS 95 U/L (45-117); CALCIUM 7.5 mg/dL (8.5-10.1); TOT PROT 5.4 g/dl (6.4-8.2)
[2020-10-30] MEDS: PHENYLEPHRINE NS PREMIX 50,000 MCG/500 ML BAG CVP SCH (08:10)
[2020-10-30] MEDS ORDERED: DOBUTAMINE 250 MG/D5W - 250,000 MCG/250 ML INFUS.BAG ONE (08:21)
[2020-10-30] MEDS ORDERED: DEXTROSE 5%-WATER - 50 ML IVPB ONE ×3 (08:23→21:53)
[2020-10-30] MEDS ORDERED: PIPERACILLIN/TAZOBACTAM 2.25 GM VIAL IVPB ONE ×3 (08:23→21:52)
[2020-10-30] MEDS: FLUDROCORTISONE ACETATE 0.1 MG TABLET (FP) PO SCH (08:30)
[2020-10-30] MEDS: HYDROCORTISONE SOD SUCCINATE 100 MG/2 ML VIAL IVPB SCH ×4 (08:30→21:54)
[2020-10-30] MEDS: D5W IV SCH (08:35)
[2020-10-30] MEDS: DOBUTAMINE IV SCH (08:35)
[2020-10-30] MEDS ORDERED: MIDAZOLAM HCL 2 MG/2 ML SINGLE DOSE VIAL ONE (08:39)
[2020-10-30] MEDS ORDERED: MIDAZOLAM HCL 2 MG/2 ML SINGLE DOSE VIAL IVPUSH ONE (09:00)
[2020-10-30] MEDS: PANTOPRAZOLE SODIUM 80 MG in SODIUM CHLORIDE 100 ML IVPB SCH (09:16)
[2020-10-30 09:35] LABS: BASO % 0.1 % (0-2.0); LYMPH % 14.9 % (8-40); MCH 29.4 pg (25.7-33.7); MCHC 32.6 g/dl (32.0-35.9); MEAN CELL VOLUME 90.2 fl (80-96); MEAN PLT VOLUME 8.2 fl (7.5-11.1); MONO % 4.5 % (3.8-10.2); NEUT % 80.5 % (42.8-82.8); PLATELET COUNT 84 K/MM3 (134-434); RDW 14.1 % (11.9-15.9); WHITE BLOOD COUNT 17.5 K/mm3 (4.0-10.0)
[2020-10-30 09:50] LABS: MAGNESIUM 2.3 mg/dL (1.8-2.4)
[2020-10-30 09:55] LABS: PHOSPHOROUS 3.8 mg/dL (2.5-4.9)
[2020-10-30] MEDS ORDERED: VANCOMYCIN/WATER BAGS 1,250 MG/250 ML BAG IVPB ONE (11:15)
[2020-10-30] MEDS: MUPIROCIN 2% TOPICAL OINTMENT FOR DECOLONIZATION NS SCH ×2 (12:22→21:55)
[2020-10-30] MEDS ORDERED: ACETAMINOPHEN 1000 MG/100 ML VIAL (NON FORMULARY) IVPB PRN (12:47)
[2020-10-30] MEDS: MIDAZOLAM 100 MG in SODIUM CHLORIDE 100 ML IVPB SCH (13:00)
[2020-10-30 13:14] LABS: ARTERIAL BLD GAS O2 SATURATION 97.1 mmHg (95-98); ARTERIAL BLOOD GAS BASE EXCESS -8.4 mmol/L (-2-2); ARTERIAL BLOOD GAS PO2 103.8 mmHg (80-100); ARTERIAL BLOOD GAS pH 7.279 (7.350-7.450)
[2020-10-30 13:18] LABS: VENT MODE A/C; VENT RATE 25
[2020-10-30] MEDS: DEXMEDETOMIDINE IN 0.9 % NACL 400 MCG/100 ML VIAL IVPB SCH (13:47)
[2020-10-30] MEDS ORDERED: PT OWN MED DRAWER 7, Y5N ONE ×3 (14:48→17:46)
[2020-10-30] MEDS: PIPERACILLIN/TAZOB 2.25 GM 2.25 GM in DEXTROSE 5%-WATER - 50 ML IVPB SCH ×2 (14:54→21:54)
[2020-10-30] MEDS: LACTATED RINGERS SOLUTION 1,000 ML/1,000 ML INFUS.BAG IV SCH (18:23)
[2020-10-30 19:18] LABS: EPI CELLS 8 /uL (0-25.1); HYALINE CASTS 3 /uL (0-3.1); URINE APPEARANCE CLOUDY; URINE BACTERIA 37 /uL (0-1359); URINE BILIRUBIN NEGATIVE (NEGATIVE); URINE COLOR YELLOW; URINE GLUCOSE (UA) NEGATIVE (NEGATIVE); URINE KETONE NEGATIVE (NEGATIVE); URINE LEUK ESTERASE NEGATIVE (NEGATIVE); URINE NITRITE NEGATIVE (NEGATIVE); URINE PROTEIN 1+ (NEGATIVE); URINE RBC 18 /uL (0-23.9); URINE UROBILINOGEN 0.2 mg/dL (0.2-1.0); URINE WBC 11 /uL (0-25.8)
[2020-10-30] MEDS: CHLORHEXIDINE GLUCONATE 4% CLEANSER FOR DECOLONIZATION TP SCH (21:55)
[2020-10-31] MEDS ORDERED: PROPOFOL 1,000,000 MCG/100 ML VIAL ONE (03:08)
[2020-10-31] MEDS: PROPOFOL 1,000,000 MCG/100 ML VIAL IVPB SCH (03:28)
[2020-10-31] MEDS ORDERED: DEXTROSE 5%-WATER - 50 ML IVPB ONE ×5 (03:54→21:33)
[2020-10-31] MEDS ORDERED: PIPERACILLIN/TAZOBACTAM 2.25 GM VIAL IVPB ONE ×5 (03:54→21:33)
[2020-10-31] MEDS: PIPERACILLIN/TAZOB 2.25 GM 2.25 GM in DEXTROSE 5%-WATER - 50 ML IVPB SCH ×4 (03:56→22:01)
[2020-10-31] MEDS: HYDROCORTISONE SOD SUCCINATE 100 MG/2 ML VIAL IVPB SCH ×4 (03:56→22:01)
[2020-10-31] MEDS: PANTOPRAZOLE SODIUM 80 MG in SODIUM CHLORIDE 100 ML IVPB SCH ×2 (04:46→17:03)
[2020-10-31 06:53] LABS: HEMATOCRIT 43.9 % (35.4-49); HEMOGLOBIN 14.6 GM/dL (11.7-16.9); MCH 29.7 pg (25.7-33.7); MCHC 33.2 g/dl (32.0-35.9); MEAN CELL VOLUME 89.5 fl (80-96); MEAN PLT VOLUME 8.6 fl (7.5-11.1); PLATELET COUNT 156 K/MM3 (134-434); RBC 4.91 M/mm3 (4.00-5.60); RDW 14.1 % (11.9-15.9); WHITE BLOOD COUNT 12.3 K/mm3 (4.0-10.0)
[2020-10-31 07:09] LABS: POTASSIUM 4.2 mmol/L (3.5-5.1)
[2020-10-31 07:12] LABS: CALCIUM 8.3 mg/dL (8.5-10.1)
[2020-10-31 07:13] LABS: BLOOD UREA NITROGEN 19.4 mg/dL (7-18)
[2020-10-31 07:16] LABS: CREATININE 1.7 mg/dL (0.55-1.3)
[2020-10-31 07:17] LABS: BILIRUBIN,TOTAL 0.5 mg/dL (0.2-1)
[2020-10-31 07:18] LABS: TOT PROT 5.3 g/dl (6.4-8.2)
[2020-10-31] MEDS ORDERED: PT OWN MED DRAWER 7, Y5N ONE ×3 (08:06→15:34)
[2020-10-31] MEDS ORDERED: MIDAZOLAM IN 0.9 % SOD.CHLORID 1 MG/1 ML PLAST..BAG ONE ×2 (08:40→19:35)
[2020-10-31] MEDS: MIDAZOLAM 100 MG in SODIUM CHLORIDE 100 ML IVPB SCH (10:00)
[2020-10-31] MEDS: NOREPINEPHRINE BITARTRATE 16,000 MCG in SODIUM CHLORIDE 484 ML IV SCH (10:57)
[2020-10-31] MEDS: D5W IV SCH (10:58)
[2020-10-31] MEDS: DOBUTAMINE IV SCH (10:58)
[2020-10-31] MEDS: DEXMEDETOMIDINE IN 0.9 % NACL 400 MCG/100 ML VIAL IVPB SCH (11:00)
[2020-10-31] MEDS: PHENYLEPHRINE NS PREMIX 50,000 MCG/500 ML BAG CVP SCH (11:02)
[2020-10-31] MEDS: MUPIROCIN 2% TOPICAL OINTMENT FOR DECOLONIZATION NS SCH ×2 (11:04→22:08)
[2020-10-31] MEDS: FLUDROCORTISONE ACETATE 0.1 MG TABLET (FP) PO SCH (11:08)
[2020-10-31 13:10] LABS: HEP B CORE AB, TOT Negative (Negative)
[2020-10-31] MEDS ORDERED: MANNITOL 25% 12.5 GM/50 ML VIAL IVPB SCH (14:00)
[2020-10-31 15:07] LABS: ARTERIAL BLD GAS O2 SATURATION 93.8 mmHg (95-98); ARTERIAL BLOOD GAS BASE EXCESS -3.6 mmol/L (-2-2); ARTERIAL BLOOD GAS PO2 66.6 mmHg (80-100); ARTERIAL BLOOD GAS pH 7.417 (7.350-7.450)
[2020-10-31 15:08] LABS: ALLENS TEST POSITIVE
[2020-10-31 15:09] LABS: VENT MODE AC; VENT RATE 32
[2020-10-31] MEDS: LACTATED RINGERS SOLUTION 1,000 ML/1,000 ML INFUS.BAG IV SCH (19:15)
[2020-10-31 21:37] LABS: ARTERIAL BLD GAS O2 SATURATION 93.2 mmHg (95-98); ARTERIAL BLOOD GAS BASE EXCESS -2.1 mmol/L (-2-2); ARTERIAL BLOOD GAS PO2 61.3 mmHg (80-100); ARTERIAL BLOOD GAS pH 7.465 (7.350-7.450)
[2020-10-31 21:47] LABS: VENT MODE A/C; VENT RATE 32
[2020-10-31] MEDS: CHLORHEXIDINE GLUCONATE 4% CLEANSER FOR DECOLONIZATION TP SCH (22:08)
[2020-10-31] MEDS: WATER IVPB SCH (22:35)
[2020-10-31] MEDS: MANNITOL IVPB SCH (22:35)
[2020-10-31] MEDS: DEXTROSE 5% IVPB SCH (22:35)
[2020-11-01] MEDS ORDERED: PIPERACILLIN/TAZOBACTAM 2.25 GM VIAL IVPB ONE ×4 (02:20→20:12)
[2020-11-01] MEDS ORDERED: DEXTROSE 5%-WATER - 50 ML IVPB ONE ×4 (02:21→20:12)
[2020-11-01] MEDS: PIPERACILLIN/TAZOB 2.25 GM 2.25 GM in DEXTROSE 5%-WATER - 50 ML IVPB SCH ×4 (02:32→20:33)
[2020-11-01] MEDS: HYDROCORTISONE SOD SUCCINATE 100 MG/2 ML VIAL IVPB SCH ×4 (02:32→20:32)
[2020-11-01] MEDS: PROPOFOL 1,000,000 MCG/100 ML VIAL IVPB SCH ×3 (04:30→17:03)
[2020-11-01] MEDS: PANTOPRAZOLE SODIUM 80 MG in SODIUM CHLORIDE 100 ML IVPB SCH ×3 (06:28→17:02)
[2020-11-01 06:30] LABS: HEMATOCRIT 43.8 % (35.4-49); MCH 30.1 pg (25.7-33.7); MCHC 34.3 g/dl (32.0-35.9); MEAN CELL VOLUME 87.7 fl (80-96); MEAN PLT VOLUME 8.8 fl (7.5-11.1); PLATELET COUNT 148 K/MM3 (134-434); RDW 13.8 % (11.9-15.9); WHITE BLOOD COUNT 11.5 K/mm3 (4.0-10.0)
[2020-11-01 06:39] LABS: ARTERIAL BLD GAS O2 SATURATION 95.3 mmHg (95-98); ARTERIAL BLOOD GAS BASE EXCESS -2.1 mmol/L (-2-2); ARTERIAL BLOOD GAS PO2 72.9 mmHg (80-100); ARTERIAL BLOOD GAS pH 7.435 (7.350-7.450)
[2020-11-01 06:40] LABS: VENT MODE A/C; VENT RATE 32
[2020-11-01 06:54] LABS: POTASSIUM 4.3 mmol/L (3.5-5.1)
[2020-11-01 06:57] LABS: BLOOD UREA NITROGEN 15.5 mg/dL (7-18); CALCIUM 8.8 mg/dL (8.5-10.1)
[2020-11-01] MEDS: NOREPINEPHRINE BITARTRATE 16,000 MCG in SODIUM CHLORIDE 484 ML IV SCH ×2 (07:00→11:35)
[2020-11-01 07:01] LABS: CREATININE 1.4 mg/dL (0.55-1.3)
[2020-11-01 07:02] LABS: BILIRUBIN,TOTAL 0.8 mg/dL (0.2-1); TOT PROT 5.7 g/dl (6.4-8.2)
[2020-11-01] MEDS ORDERED: NICARDIPINE 25 MG in DEXTROSE 5%-WATER - 240 ML IVPB SCH (07:15)
[2020-11-01] MEDS: PHENYLEPHRINE NS PREMIX 50,000 MCG/500 ML BAG CVP SCH (08:15)
[2020-11-01] MEDS ORDERED: PT OWN MED DRAWER 7, Y5N ONE (08:57)
[2020-11-01] MEDS: FLUDROCORTISONE ACETATE 0.1 MG TABLET (FP) PO SCH (09:03)
[2020-11-01] MEDS: MUPIROCIN 2% TOPICAL OINTMENT FOR DECOLONIZATION NS SCH ×2 (09:04→22:05)
[2020-11-01] MEDS: DEXTROSE 5% IVPB SCH (10:00)
[2020-11-01] MEDS: MANNITOL IVPB SCH (10:00)
[2020-11-01] MEDS: WATER IVPB SCH (10:00)
[2020-11-01] MEDS ORDERED: metoPROLOL SUCCINATE 25 MG TAB.SR.24H (FP) PO SCH (10:15)
[2020-11-01] MEDS: MANNITOL 25% 12.5 GM/50 ML VIAL IVPB SCH ×2 (11:13→22:07)
[2020-11-01] MEDS: LACTATED RINGERS SOLUTION 1,000 ML/1,000 ML INFUS.BAG IV SCH (11:32)
[2020-11-01] MEDS ORDERED: SODIUM CHLORIDE 0.45% 1,000 ML IV SCH (11:45)
[2020-11-01] MEDS: MIDAZOLAM 100 MG in SODIUM CHLORIDE 100 ML IVPB SCH ×2 (13:00→13:50)
[2020-11-01] MEDS: DEXMEDETOMIDINE IN 0.9 % NACL 400 MCG/100 ML VIAL IVPB SCH ×2 (13:00→13:43)
[2020-11-01] MEDS ORDERED: MIDAZOLAM IN 0.9 % SOD.CHLORID 1 MG/1 ML PLAST..BAG ONE (13:49)
[2020-11-01 15:19] LABS: ALLENS TEST NEGATIVE; ARTERIAL BLD GAS O2 SATURATION 95.2 mmHg (95-98); ARTERIAL BLOOD GAS BASE EXCESS 0.4 mmol/L (-2-2); ARTERIAL BLOOD GAS PO2 68.3 mmHg (80-100); ARTERIAL BLOOD GAS pH 7.494 (7.350-7.450)
[2020-11-01 15:20] LABS: VENT MODE AC; VENT RATE 32
[2020-11-01] MEDS: CHLORHEXIDINE GLUCONATE 4% CLEANSER FOR DECOLONIZATION TP SCH (22:05)
[2020-11-02] MEDS ORDERED: PIPERACILLIN/TAZOBACTAM 2.25 GM VIAL IVPB ONE ×4 (01:58→21:15)
[2020-11-02] MEDS ORDERED: DEXTROSE 5%-WATER - 50 ML IVPB ONE ×4 (01:58→21:15)
[2020-11-02] MEDS: PIPERACILLIN/TAZOB 2.25 GM 2.25 GM in DEXTROSE 5%-WATER - 50 ML IVPB SCH ×4 (02:43→21:26)
[2020-11-02] MEDS: HYDROCORTISONE SOD SUCCINATE 100 MG/2 ML VIAL IVPB SCH ×4 (02:43→21:29)
[2020-11-02] MEDS: PROPOFOL 1,000,000 MCG/100 ML VIAL IVPB SCH ×3 (03:15→18:51)
[2020-11-02] MEDS: PANTOPRAZOLE SODIUM 80 MG in SODIUM CHLORIDE 100 ML IVPB SCH ×2 (04:15→21:24)
[2020-11-02 06:22] LABS: ARTERIAL BLOOD GAS BASE EXCESS -1.1 mmol/L (-2-2); ARTERIAL BLOOD GAS PO2 80.9 mmHg (80-100); ARTERIAL BLOOD GAS pH 7.511 (7.350-7.450)
[2020-11-02 06:24] LABS: VENT MODE A/C; VENT RATE 32
[2020-11-02 07:19] LABS: BASO % 0.1 % (0-2.0); EOS % 0.1 % (0-4.5); HEMATOCRIT 41.5 % (35.4-49); LYMPH % 14.5 % (8-40); MCHC 33.8 g/dl (32.0-35.9); MEAN CELL VOLUME 88.8 fl (80-96); MEAN PLT VOLUME 9.4 fl (7.5-11.1); MONO % 7.5 % (3.8-10.2); NEUT % 77.8 % (42.8-82.8); PLATELET COUNT 115 K/MM3 (134-434); RBC 4.67 M/mm3 (4.00-5.60); RDW 13.8 % (11.9-15.9); WHITE BLOOD COUNT 8.7 K/mm3 (4.0-10.0)
[2020-11-02 07:47] LABS: POTASSIUM 3.4 mmol/L (3.5-5.1)
[2020-11-02 07:52] LABS: CALCIUM 8.7 mg/dL (8.5-10.1)
[2020-11-02 07:53] LABS: ALBUMIN 2.7 g/dl (3.4-5.0); BLOOD UREA NITROGEN 15.8 mg/dL (7-18); MAGNESIUM 2.2 mg/dL (1.8-2.4)
[2020-11-02 07:55] LABS: BILIRUBIN,TOTAL 0.7 mg/dL (0.2-1); CREATININE 1.3 mg/dL (0.55-1.3); PHOSPHOROUS 1.9 mg/dL (2.5-4.9); TOT PROT 5.4 g/dl (6.4-8.2)
[2020-11-02] MEDS: MUPIROCIN 2% TOPICAL OINTMENT FOR DECOLONIZATION NS SCH ×2 (09:11→21:26)
[2020-11-02] MEDS: FLUDROCORTISONE ACETATE 0.1 MG TABLET (FP) PO SCH (09:11)
[2020-11-02] MEDS: NOREPINEPHRINE BITARTRATE 16,000 MCG in SODIUM CHLORIDE 484 ML IV SCH (09:14)
[2020-11-02] MEDS: MANNITOL 25% 12.5 GM/50 ML VIAL IVPB SCH ×2 (09:17→22:31)
[2020-11-02] MEDS: KCL 10 MEQ IVPB 10 MEQ/100 ML INFUS.BAG IVPB SCH ×3 (09:23→11:52)
[2020-11-02] MEDS ORDERED: MIDAZOLAM IN 0.9 % SOD.CHLORID 1 MG/1 ML PLAST..BAG ONE (10:24)
[2020-11-02] MEDS: PHENYLEPHRINE NS PREMIX 50,000 MCG/500 ML BAG CVP SCH (10:50)
[2020-11-02] MEDS: MIDAZOLAM 100 MG in SODIUM CHLORIDE 100 ML IVPB SCH ×2 (11:10→11:30)
[2020-11-02] MEDS: DEXMEDETOMIDINE IN 0.9 % NACL 400 MCG/100 ML VIAL IVPB SCH ×2 (13:26)
[2020-11-02] MEDS: ARTIFICIAL TEARS (POLYVINYL ALCOHOL) OPTH DROPS OU PRN (18:53)
[2020-11-02 19:51] LABS: POTASSIUM 3.7 mmol/L (3.5-5.1)
[2020-11-02 19:54] LABS: CALCIUM 8.6 mg/dL (8.5-10.1)
[2020-11-02 19:55] LABS: BLOOD UREA NITROGEN 15.5 mg/dL (7-18)
[2020-11-02 19:57] LABS: CREATININE 1.3 mg/dL (0.55-1.3)
[2020-11-02] MEDS: CHLORHEXIDINE GLUCONATE 4% CLEANSER FOR DECOLONIZATION TP SCH (21:28)
[2020-11-03 01:46] LABS: CHLORIDE 138 mmol/L (98-107); POTASSIUM 3.1 mmol/L (3.5-5.1)
[2020-11-03 01:47] LABS: CALCIUM 8.7 mg/dL (8.5-10.1)
[2020-11-03 01:49] LABS: BLOOD UREA NITROGEN 17.8 mg/dL (7-18); CO2 27 mmol/L (21-32); GLUCOSE,RANDOM 112 mg/dL (74-106)
[2020-11-03 01:52] LABS: CREATININE 1.4 mg/dL (0.55-1.3)
[2020-11-03 01:57] LABS: ANION GAP 1 MMOL/L (8-16); SODIUM 166 mmol/L (136-145)
[2020-11-03] MEDS ORDERED: DEXTROSE 5%-WATER - 1,000 ML IV SCH (03:00)
[2020-11-03] MEDS ORDERED: DEXTROSE 5%-WATER - 50 ML IVPB ONE ×4 (03:29→22:22)
[2020-11-03] MEDS ORDERED: PIPERACILLIN/TAZOBACTAM 2.25 GM VIAL IVPB ONE ×4 (03:29→22:22)
[2020-11-03] MEDS: HYDROCORTISONE SOD SUCCINATE 100 MG/2 ML VIAL IVPB SCH ×3 (03:46→22:25)
[2020-11-03] MEDS: PIPERACILLIN/TAZOB 2.25 GM 2.25 GM in DEXTROSE 5%-WATER - 50 ML IVPB SCH ×4 (03:53→22:24)
[2020-11-03] MEDS: PROPOFOL 1,000,000 MCG/100 ML VIAL IVPB SCH (04:38)
[2020-11-03 06:52] LABS: HEMATOCRIT 42.4 % (35.4-49); HEMOGLOBIN 14.1 GM/dL (11.7-16.9); MCH 29.7 pg (25.7-33.7); MCHC 33.4 g/dl (32.0-35.9); MEAN CELL VOLUME 88.9 fl (80-96); MEAN PLT VOLUME 8.9 fl (7.5-11.1); PLATELET COUNT 161 K/MM3 (134-434); RBC 4.76 M/mm3 (4.00-5.60); RDW 14.1 % (11.9-15.9); WHITE BLOOD COUNT 7.3 K/mm3 (4.0-10.0)
[2020-11-03 07:21] LABS: CHLORIDE 139 mmol/L (98-107); POTASSIUM 3.1 mmol/L (3.5-5.1)
[2020-11-03 07:33] LABS: CALCIUM 8.6 mg/dL (8.5-10.1)
[2020-11-03 07:34] LABS: ALBUMIN 2.6 g/dl (3.4-5.0); BLOOD UREA NITROGEN 18.3 mg/dL (7-18); CO2 24 mmol/L (21-32); GLUCOSE,RANDOM 130 mg/dL (74-106)
[2020-11-03 07:37] LABS: CREATININE 1.3 mg/dL (0.55-1.3); SGOT/AST 138 U/L (15-37); SGPT/ALT 906 U/L (13-61)
[2020-11-03 07:40] LABS: ALK PHOS 87 U/L (45-117); BILIRUBIN,TOTAL 0.4 mg/dL (0.2-1); TOT PROT 5.3 g/dl (6.4-8.2)
[2020-11-03] MEDS: DEXTROSE 5%-WATER - 1,000 ML IV SCH (07:40)
[2020-11-03 07:43] LABS: ANION GAP 4 MMOL/L (8-16); SODIUM 167 mmol/L (136-145)
[2020-11-03] MEDS: KCL 10 MEQ IVPB 10 MEQ/100 ML INFUS.BAG IVPB SCH ×3 (08:57→10:44)
[2020-11-03] MEDS: NOREPINEPHRINE BITARTRATE 16,000 MCG in SODIUM CHLORIDE 484 ML IV SCH ×2 (09:06→15:19)
[2020-11-03] MEDS: MUPIROCIN 2% TOPICAL OINTMENT FOR DECOLONIZATION NS SCH ×2 (09:35→22:24)
[2020-11-03] MEDS ORDERED: PT OWN MED DRAWER 7, Y5N ONE ×2 (09:47→22:22)
[2020-11-03] MEDS: FLUDROCORTISONE ACETATE 0.1 MG TABLET (FP) PO SCH (09:53)
[2020-11-03] MEDS: PANTOPRAZOLE SODIUM 40 MG VIAL IVPUSH SCH (09:53)
[2020-11-03] MEDS ORDERED: DESMOPRESSIN ACETATE 4 MCG/ML AMP SQ ONE (10:00)
[2020-11-03] MEDS: NICARDIPINE 25 MG in DEXTROSE 5%-WATER - 240 ML IVPB SCH (10:27)
[2020-11-03] MEDS: MANNITOL 25% 12.5 GM/50 ML VIAL IVPB SCH ×2 (10:33→23:38)
[2020-11-03] MEDS ORDERED: LABETALOL HCL 5 MG/1 ML (100MG/20 ML VIAL) ONE (11:29)
[2020-11-03] MEDS: LABETALOL HCL INJECTION 1,000 MG in DEXTROSE 5%-WATER - 800 ML IV SCH (12:18)
[2020-11-03] MEDS: DEXMEDETOMIDINE IN 0.9 % NACL 400 MCG/100 ML VIAL IVPB SCH (12:59)
[2020-11-03] MEDS ORDERED: LABETALOL HCL 5 MG/1 ML (100MG/20 ML VIAL) IVPUSH ONE (13:30)
[2020-11-03] MEDS ORDERED: NOREPINEPHRINE D5W PREMIX 16,000 MCG/500 ML BAG IVPB ONE (15:06)
[2020-11-03 17:16] LABS: CHLORIDE 132 mmol/L (98-107); POTASSIUM 3.4 mmol/L (3.5-5.1)
[2020-11-03 17:17] LABS: CALCIUM 8.4 mg/dL (8.5-10.1)
[2020-11-03 17:18] LABS: ANION GAP 10 MMOL/L (8-16); CO2 27 mmol/L (21-32); GLUCOSE,RANDOM 144 mg/dL (74-106); SODIUM 169 mmol/L (136-145)
[2020-11-03 17:22] LABS: CREATININE 1.4 mg/dL (0.55-1.3)
[2020-11-03] MEDS ORDERED: DESMOPRESSIN ACETATE 4 MCG/ML AMP IVPB ONE ×2 (17:32→22:00)
[2020-11-03] MEDS: VASOPRESSIN 40 UNITS in SODIUM CHLORIDE 98 ML IVPB SCH (20:35)
[2020-11-03] MEDS: CHLORHEXIDINE GLUCONATE 4% CLEANSER FOR DECOLONIZATION TP SCH (22:25)
[2020-11-03] MEDS ORDERED: INSULIN (NOVOLOG) ASPART 100 UNITS/ML 10ML VIAL ONE (22:51)
[2020-11-03 23:26] LABS: CHLORIDE 129 mmol/L (98-107)
[2020-11-03 23:27] LABS: CALCIUM 8.2 mg/dL (8.5-10.1)
[2020-11-03 23:28] LABS: BLOOD UREA NITROGEN 20.4 mg/dL (7-18); CO2 31 mmol/L (21-32); GLUCOSE,RANDOM 126 mg/dL (74-106)
[2020-11-03 23:30] LABS: ANION GAP 4 MMOL/L (8-16); SODIUM 164 mmol/L (136-145)
[2020-11-03 23:31] LABS: CREATININE 1.4 mg/dL (0.55-1.3)
[2020-11-04] MEDS ORDERED: DEXTROSE 5%-WATER - 50 ML IVPB ONE ×3 (01:09→14:50)
[2020-11-04] MEDS ORDERED: PIPERACILLIN/TAZOBACTAM 2.25 GM VIAL IVPB ONE ×4 (01:09→14:50)
[2020-11-04] MEDS: PIPERACILLIN/TAZOB 2.25 GM 2.25 GM in DEXTROSE 5%-WATER - 50 ML IVPB SCH ×3 (03:56→14:59)
[2020-11-04] MEDS: PROPOFOL 1,000,000 MCG/100 ML VIAL IVPB SCH (04:07)
[2020-11-04] MEDS ORDERED: DESMOPRESSIN ACETATE 4 MCG/ML AMP IVPB ONE (05:55)
[2020-11-04] MEDS ORDERED: PT OWN MED DRAWER 7, Y5N ONE ×3 (07:20→22:09)
[2020-11-04 07:39] LABS: HEMATOCRIT 37.3 % (35.4-49); HEMOGLOBIN 12.5 GM/dL (11.7-16.9); MCH 30.2 pg (25.7-33.7); MCHC 33.5 g/dl (32.0-35.9); MEAN CELL VOLUME 90.2 fl (80-96); PLATELET COUNT 135 K/MM3 (134-434); RBC 4.14 M/mm3 (4.00-5.60); RDW 14.1 % (11.9-15.9); WHITE BLOOD COUNT 7.4 K/mm3 (4.0-10.0)
[2020-11-04] MEDS: DEXTROSE 5%-WATER - 1,000 ML IV SCH ×2 (07:43→19:00)
[2020-11-04 07:50] LABS: CHLORIDE 127 mmol/L (98-107); POTASSIUM 3.2 mmol/L (3.5-5.1)
[2020-11-04 08:03] LABS: ALBUMIN 2.3 g/dl (3.4-5.0); BLOOD UREA NITROGEN 19.2 mg/dL (7-18); CO2 29 mmol/L (21-32); GLUCOSE,RANDOM 157 mg/dL (74-106); MAGNESIUM 2.2 mg/dL (1.8-2.4)
[2020-11-04 08:05] LABS: CREATININE 1.3 mg/dL (0.55-1.3); PHOSPHOROUS 4.7 mg/dL (2.5-4.9); SGOT/AST 71 U/L (15-37); SGPT/ALT 623 U/L (13-61)
[2020-11-04 08:06] LABS: BILIRUBIN,TOTAL 0.5 mg/dL (0.2-1)
[2020-11-04 08:07] LABS: ALK PHOS 87 U/L (45-117)
[2020-11-04 08:17] LABS: ANION GAP 5 MMOL/L (8-16)
[2020-11-04 08:39] LABS: SODIUM 161 mmol/L (136-145)
[2020-11-04] MEDS: KCL 10 MEQ IVPB 10 MEQ/100 ML INFUS.BAG IVPB SCH ×3 (08:49→11:00)
[2020-11-04] MEDS: PANTOPRAZOLE SODIUM 40 MG VIAL IVPUSH SCH (09:00)
[2020-11-04] MEDS: HYDROCORTISONE SOD SUCCINATE 100 MG/2 ML VIAL IVPB SCH ×2 (09:01→22:10)
[2020-11-04] MEDS: FLUDROCORTISONE ACETATE 0.1 MG TABLET (FP) PO SCH (09:01)
[2020-11-04] MEDS: NICARDIPINE 25 MG in DEXTROSE 5%-WATER - 240 ML IVPB SCH (11:11)
[2020-11-04] MEDS: LABETALOL HCL INJECTION 1,000 MG in DEXTROSE 5%-WATER - 800 ML IV SCH (11:14)
[2020-11-04] MEDS: MANNITOL 25% 12.5 GM/50 ML VIAL IVPB SCH ×2 (11:35→22:31)
[2020-11-04] MEDS: DEXMEDETOMIDINE IN 0.9 % NACL 400 MCG/100 ML VIAL IVPB SCH (12:29)
[2020-11-04 18:48] LABS: POTASSIUM 3.3 mmol/L (3.5-5.1)
[2020-11-04 18:49] LABS: CALCIUM 8.1 mg/dL (8.5-10.1)
[2020-11-04 18:50] LABS: BLOOD UREA NITROGEN 17.6 mg/dL (7-18)
[2020-11-04 18:53] LABS: CREATININE 0.9 mg/dL (0.55-1.3)
[2020-11-04] MEDS: VASOPRESSIN 40 UNITS in SODIUM CHLORIDE 98 ML IVPB SCH (21:23)
[2020-11-04] MEDS: NOREPINEPHRINE BITARTRATE 16,000 MCG in SODIUM CHLORIDE 484 ML IV SCH (21:23)
[2020-11-04] MEDS: CHLORHEXIDINE GLUCONATE 4% CLEANSER FOR DECOLONIZATION TP SCH (22:09)
[2020-11-04] MEDS: DESMOPRESSIN ACETATE 4 MCG/ML AMP IVPB SCH (22:25)
[2020-11-05 06:47] LABS: HEMATOCRIT 36.1 % (35.4-49); HEMOGLOBIN 11.9 GM/dL (11.7-16.9); MCH 29.7 pg (25.7-33.7); MCHC 33.1 g/dl (32.0-35.9); MEAN CELL VOLUME 89.8 fl (80-96); MEAN PLT VOLUME 9.2 fl (7.5-11.1); PLATELET COUNT 130 K/MM3 (134-434); RBC 4.02 M/mm3 (4.00-5.60); RDW 14.3 % (11.9-15.9)
[2020-11-05 07:03] LABS: POTASSIUM 3.4 mmol/L (3.5-5.1)
[2020-11-05 07:06] LABS: ALBUMIN 2.1 g/dl (3.4-5.0); BLOOD UREA NITROGEN 17.1 mg/dL (7-18); CALCIUM 8.1 mg/dL (8.5-10.1)
[2020-11-05 07:09] LABS: CREATININE 0.9 mg/dL (0.55-1.3)
[2020-11-05 07:11] LABS: BILIRUBIN,TOTAL 0.3 mg/dL (0.2-1); TOT PROT 4.9 g/dl (6.4-8.2)
[2020-11-05] MEDS ORDERED: PT OWN MED DRAWER 7, Y5N ONE (08:51)
[2020-11-05] MEDS: PANTOPRAZOLE SODIUM 40 MG VIAL IVPUSH SCH (09:06)
[2020-11-05] MEDS: HYDROCORTISONE SOD SUCCINATE 100 MG/2 ML VIAL IVPB SCH ×2 (09:07→21:58)
[2020-11-05] MEDS: DESMOPRESSIN ACETATE 4 MCG/ML AMP IVPB SCH (09:07)
[2020-11-05] MEDS: KCL 10 MEQ IVPB 10 MEQ/100 ML INFUS.BAG IVPB SCH ×3 (09:08→12:00)
[2020-11-05] MEDS: FLUDROCORTISONE ACETATE 0.1 MG TABLET (FP) PO SCH (09:09)
[2020-11-05] MEDS: DEXTROSE 5%-WATER - 1,000 ML IV SCH (09:09)
[2020-11-05] MEDS: NICARDIPINE 25 MG in DEXTROSE 5%-WATER - 240 ML IVPB SCH ×2 (10:46→18:12)
[2020-11-05] MEDS: MANNITOL 25% 12.5 GM/50 ML VIAL IVPB SCH ×2 (11:15→22:00)
[2020-11-05] MEDS ORDERED: ALTEPLASE 2 MG VIAL IVPUSH ONE (12:07)
[2020-11-05] MEDS: LABETALOL HCL INJECTION 1,000 MG in DEXTROSE 5%-WATER - 800 ML IV SCH (13:11)
[2020-11-05] MEDS ORDERED: DEXTROSE 5%-WATER - 1,000 ML IV SCH ×2 (13:55→15:50)
[2020-11-05] MEDS ORDERED: DESMOPRESSIN ACETATE 4 MCG/ML AMP IVPB SCH (14:09)
[2020-11-05 15:26] VITALS: BMI 31.4
[2020-11-05] MEDS ORDERED: LABETALOL HCL 5 MG/1 ML (100MG/20 ML VIAL) IVPUSH ONE ×2 (17:07→17:27)
[2020-11-05] MEDS ORDERED: niCARdipine HCL 25 MG/10 ML AMPUL IVPB ONE (18:03)
[2020-11-05] MEDS: PROPOFOL 1,000,000 MCG/100 ML VIAL IVPB SCH (21:52)
[2020-11-05] MEDS: CHLORHEXIDINE GLUCONATE 4% CLEANSER FOR DECOLONIZATION TP SCH (21:58)
[2020-11-06 06:56] LABS: POTASSIUM 3.5 mmol/L (3.5-5.1)
[2020-11-06 06:58] LABS: CALCIUM 7.8 mg/dL (8.5-10.1)
[2020-11-06 06:59] LABS: BLOOD UREA NITROGEN 19.3 mg/dL (7-18)
[2020-11-06 07:02] LABS: CREATININE 0.8 mg/dL (0.55-1.3)
[2020-11-06 07:03] LABS: BILIRUBIN,TOTAL 0.6 mg/dL (0.2-1)
[2020-11-06 07:04] LABS: TOT PROT 4.8 g/dl (6.4-8.2)
[2020-11-06 08:11] LABS: HEMATOCRIT 35.4 % (35.4-49); HEMOGLOBIN 11.8 GM/dL (11.7-16.9); MCH 29.9 pg (25.7-33.7); MCHC 33.3 g/dl (32.0-35.9); MEAN CELL VOLUME 89.7 fl (80-96); MEAN PLT VOLUME 9.2 fl (7.5-11.1); PLATELET COUNT 142 K/MM3 (134-434); RBC 3.95 M/mm3 (4.00-5.60); RDW 14.4 % (11.9-15.9); WHITE BLOOD COUNT 8.7 K/mm3 (4.0-10.0)
[2020-11-06] MEDS: PANTOPRAZOLE SODIUM 40 MG VIAL IVPUSH SCH (09:25)
[2020-11-06] MEDS: HYDROCORTISONE SOD SUCCINATE 100 MG/2 ML VIAL IVPB SCH ×2 (09:25→21:54)
[2020-11-06] MEDS: MANNITOL 25% 12.5 GM/50 ML VIAL IVPB SCH ×2 (11:15→22:00)
[2020-11-06 12:09] LABS: ARTERIAL BLD GAS O2 SATURATION 96.3 mmHg (95-98); ARTERIAL BLOOD GAS PO2 87.1 mmHg (80-100); ARTERIAL BLOOD GAS pH 7.377 (7.350-7.450)
[2020-11-06 12:10] LABS: ALLENS TEST POSITIVE
[2020-11-06 12:11] LABS: VENT MODE VT; VENT RATE 18
[2020-11-06 13:03] LABS: ARTERIAL BLD GAS O2 SATURATION 92.2 mmHg (95-98); ARTERIAL BLOOD GAS BASE EXCESS -1.7 mmol/L (-2-2)
[2020-11-06 13:05] LABS: VENT RATE 18
[2020-11-06 13:07] LABS: ARTERIAL BLOOD GAS pH 7.015 (7.350-7.450)
[2020-11-06 13:09] LABS: ARTERIAL BLD GAS O2 SATURATION 94.4 mmHg (95-98); ARTERIAL BLOOD GAS BASE EXCESS -5.3 mmol/L (-2-2); ARTERIAL BLOOD GAS PO2 98.1 mmHg (80-100)
[2020-11-06 13:10] LABS: VENT MODE V; VENT RATE 18
[2020-11-06 13:13] LABS: ARTERIAL BLOOD GAS pH 7.097 (7.350-7.450)
[2020-11-06] MEDS: NOREPINEPHRINE D5W PREMIX 16,000 MCG/500 ML BAG IVPB SCH (14:01)
[2020-11-06] MEDS ORDERED: NOREPINEPHRINE BITARTRATE 4 MG/4 ML ML IV ONE (14:32)
[2020-11-06] MEDS: NICARDIPINE 25 MG in DEXTROSE 5%-WATER - 240 ML IVPB SCH ×2 (18:05)
[2020-11-06] MEDS: CHLORHEXIDINE GLUCONATE 4% CLEANSER FOR DECOLONIZATION TP SCH (21:53)
[2020-11-07 07:22] LABS: CALCIUM 8.8 mg/dL (8.5-10.1)
[2020-11-07 07:23] LABS: BLOOD UREA NITROGEN 20.4 mg/dL (7-18)
[2020-11-07 07:26] LABS: CREATININE 0.9 mg/dL (0.55-1.3)
[2020-11-07] MEDS ORDERED: PT OWN MED DRAWER 7, Y5N ONE (11:00)
[2020-11-07] MEDS: HYDROCORTISONE SOD SUCCINATE 100 MG/2 ML VIAL IVPB SCH ×2 (11:04→21:56)
[2020-11-07] MEDS: PANTOPRAZOLE SODIUM 40 MG VIAL IVPUSH SCH (11:05)
[2020-11-07] MEDS ORDERED: DESMOPRESSIN ACETATE 4 MCG/ML AMP IVPB SCH (11:30)
[2020-11-07] MEDS ORDERED: methylPREDNISolone NA SUCC 1000 MG/8 ML VIAL IVPB ONE (11:51)
[2020-11-07] MEDS: DEXTROSE 5%-LACTATED RINGERS 1,000 ML IV SCH ×2 (12:15→21:56)
[2020-11-07] MEDS ORDERED: LEVOTHYROXINE SODIUM 100 MCG VIAL IVPUSH SCH (13:00)
[2020-11-07] MEDS ORDERED: LEVOTHYROXINE SODIUM IVPB SCH (13:00)
[2020-11-07] MEDS ORDERED: SODIUM CHLORIDE IVPB SCH (13:00)
[2020-11-07] MEDS: MANNITOL 25% 12.5 GM/50 ML VIAL IVPB SCH ×2 (13:06→21:56)
[2020-11-07] MEDS: DESMOPRESSIN ACETATE 4 MCG/ML AMP IVPB SCH ×2 (13:07→21:57)
[2020-11-07] MEDS: NICARDIPINE 25 MG in DEXTROSE 5%-WATER - 240 ML IVPB SCH (18:05)
[2020-11-07] MEDS: NOREPINEPHRINE D5W PREMIX 16,000 MCG/500 ML BAG IVPB SCH (18:05)
[2020-11-07] MEDS ORDERED: BENZOIN/ALOE VERA/STORAX/TOLU 58 ML BOTTLE ONE (18:50)
[2020-11-07 18:51] LABS: ARTERIAL BLOOD GAS BASE EXCESS 3.7 mmol/L (-2-2); ARTERIAL BLOOD GAS pH 7.429 (7.350-7.450)
[2020-11-07 18:52] LABS: ALLENS TEST POSITIVE; ARTERIAL BLD GAS O2 SATURATION 93.3 mmHg (95-98)
[2020-11-07 18:53] LABS: VENT MODE AC; VENT RATE 18
[2020-11-07] MEDS: CHLORHEXIDINE GLUCONATE 4% CLEANSER FOR DECOLONIZATION TP SCH (21:55)
[2020-11-07] MEDS ORDERED: VANCOMYCIN 1 GM in D5W (PRE-DOCKED) 1,000 MG/250 ML IVPB SCH (22:45)
[2020-11-07] MEDS ORDERED: PIPERACILLIN/TAZOB 3.375 GM 3.375 GM in DEXTROSE 5%-WATER - 50 ML IVPB SCH (22:45)
[2020-11-07] MEDS: SODIUM CHLORIDE IVPB SCH (23:00)
[2020-11-07] MEDS: LEVOTHYROXINE SODIUM IVPB SCH (23:00)
[2020-11-07] MEDS ORDERED: PIPERACILLIN/TAZOBACTAM 3.375 GM VIAL IVPB ONE (23:44)
[2020-11-07] MEDS ORDERED: DEXTROSE 5%-WATER - 50 ML IVPB ONE (23:44)
[2020-11-07] MEDS: PIPERACILLIN/TAZOB 3.375 GM 3.375 GM in DEXTROSE 5%-WATER - 50 ML IVPB SCH (23:46)
[2020-11-07] MEDS: VANCOMYCIN 1 GM in D5W (PRE-DOCKED) 1,000 MG/250 ML IVPB SCH (23:46)
[2020-11-08 06:30] LABS: ARTERIAL BLD GAS O2 SATURATION 91.4 mmHg (95-98); ARTERIAL BLOOD GAS BASE EXCESS 2.3 mmol/L (-2-2); ARTERIAL BLOOD GAS PO2 59.8 mmHg (80-100); ARTERIAL BLOOD GAS pH 7.424 (7.350-7.450)
[2020-11-08 06:32] LABS: ALLENS TEST POSITIVE; VENT MODE A/C
[2020-11-08 06:33] LABS: VENT RATE 18
[2020-11-08] MEDS ORDERED: PIPERACILLIN/TAZOBACTAM 3.375 GM VIAL IVPB ONE (06:59)
[2020-11-08] MEDS ORDERED: DEXTROSE 5%-WATER - 50 ML IVPB ONE (06:59)
[2020-11-08] MEDS ORDERED: hydrALAZINE HCL 20 MG/ML VIAL IVPUSH ONE (07:01)
[2020-11-08 07:35] LABS: CALCIUM 8.8 mg/dL (8.5-10.1)
[2020-11-08 07:36] LABS: BLOOD UREA NITROGEN 31.4 mg/dL (7-18)
[2020-11-08 07:39] LABS: CREATININE 0.9 mg/dL (0.55-1.3)
[2020-11-08] MEDS: DEXTROSE 5%-LACTATED RINGERS 1,000 ML IV SCH ×2 (07:50→13:13)
[2020-11-08] MEDS: PIPERACILLIN/TAZOB 3.375 GM 3.375 GM in DEXTROSE 5%-WATER - 50 ML IVPB SCH ×2 (07:57→15:20)
[2020-11-08] MEDS ORDERED: PT OWN MED DRAWER 7, Y5N ONE ×3 (10:14→21:41)
[2020-11-08] MEDS: PANTOPRAZOLE SODIUM 40 MG VIAL IVPUSH SCH (10:16)
[2020-11-08] MEDS: HYDROCORTISONE SOD SUCCINATE 100 MG/2 ML VIAL IVPB SCH ×2 (10:18→21:58)
[2020-11-08] MEDS: VANCOMYCIN 1 GM in D5W (PRE-DOCKED) 1,000 MG/250 ML IVPB SCH (10:19)
[2020-11-08] MEDS: DESMOPRESSIN ACETATE 4 MCG/ML AMP IVPB SCH ×2 (10:45→21:59)
[2020-11-08] MEDS ORDERED: ALBUTEROL SO4 2.5/IPRATROPIUM 0.5 INH SOL 3 ML VIAL.NEB. NEB PRN (12:24)
[2020-11-08] MEDS: methylPREDNISolone NA SUCC 40 MG/1 ML VIAL IVPUSH SCH ×3 (13:11→19:12)
[2020-11-08] MEDS: NOREPINEPHRINE D5W PREMIX 16,000 MCG/500 ML BAG IVPB SCH (15:09)
[2020-11-08] MEDS: LEVOTHYROXINE SODIUM IVPB SCH (19:13)
[2020-11-08] MEDS: SODIUM CHLORIDE IVPB SCH (19:13)
[2020-11-08] MEDS: CHLORHEXIDINE GLUCONATE 4% CLEANSER FOR DECOLONIZATION TP SCH (21:59)
[2020-11-09] MEDS: methylPREDNISolone NA SUCC 40 MG/1 ML VIAL IVPUSH SCH ×2 (02:00→10:31)
[2020-11-09] MEDS ORDERED: INSULIN (NOVOLOG) ASPART 100 UNITS/ML 10ML VIAL ONE (04:13)
[2020-11-09 06:34] LABS: POTASSIUM 3.8 mmol/L (3.5-5.1)
[2020-11-09 06:35] LABS: CALCIUM 8.6 mg/dL (8.5-10.1)
[2020-11-09 06:36] LABS: ALBUMIN 1.7 g/dl (3.4-5.0); BLOOD UREA NITROGEN 35.1 mg/dL (7-18)
[2020-11-09 06:39] LABS: CREATININE 0.9 mg/dL (0.55-1.3)
[2020-11-09 06:40] LABS: BILIRUBIN,TOTAL 0.2 mg/dL (0.2-1)
[2020-11-09 06:41] LABS: TOT PROT 5.1 g/dl (6.4-8.2)
[2020-11-09 06:47] LABS: HEMATOCRIT 35.7 % (35.4-49); HEMOGLOBIN 12.3 GM/dL (11.7-16.9); MCH 30.1 pg (25.7-33.7); MCHC 34.3 g/dl (32.0-35.9); MEAN CELL VOLUME 87.8 fl (80-96); MEAN PLT VOLUME 9.1 fl (7.5-11.1); PLATELET COUNT 197 K/MM3 (134-434); RBC 4.07 M/mm3 (4.00-5.60); RDW 14.1 % (11.9-15.9); WHITE BLOOD COUNT 9.8 K/mm3 (4.0-10.0)
[2020-11-09 06:48] LABS: ARTERIAL BLD GAS O2 SATURATION 94.8 mmHg (95-98); ARTERIAL BLOOD GAS BASE EXCESS 1.4 mmol/L (-2-2); ARTERIAL BLOOD GAS PO2 70.6 mmHg (80-100); ARTERIAL BLOOD GAS pH 7.439 (7.350-7.450)
[2020-11-09 06:50] LABS: VENT MODE A/C; VENT RATE 18
[2020-11-09] MEDS: DESMOPRESSIN ACETATE 4 MCG/ML AMP IVPB SCH (10:30)
[2020-11-09] MEDS: HYDROCORTISONE SOD SUCCINATE 100 MG/2 ML VIAL IVPB SCH (10:30)
[2020-11-09] MEDS: ARTIFICIAL TEARS (POLYVINYL ALCOHOL) OPTH DROPS OU PRN (10:31)
[2020-11-09] MEDS: PANTOPRAZOLE SODIUM 40 MG VIAL IVPUSH SCH (10:31)
[2020-11-09] MEDS ORDERED: DEXTROSE 5%-WATER - 50 ML IVPB ONE ×2 (11:41→17:30)
[2020-11-09] MEDS ORDERED: PIPERACILLIN/TAZOBACTAM 3.375 GM VIAL IVPB ONE ×2 (11:41→17:30)
[2020-11-09] MEDS: POTASSIUM CHLORIDE 10 MEQ in DEXTROSE 5%-WATER - 1,000 ML IV SCH (11:47)
[2020-11-09] MEDS: methylPREDNISolone NA SUCC 1000 MG/8 ML VIAL IVPB SCH (11:48)
[2020-11-09] MEDS: PIPERACILLIN/TAZOB 3.375 GM 3.375 GM in DEXTROSE 5%-WATER - 50 ML IVPB SCH ×2 (11:53→17:31)
[2020-11-09] MEDS: VANCOMYCIN 1 GRAM (PRE-DOCKED) 1,000 MG/250 ML BAG IVPB SCH (11:56)
[2020-11-09 14:25] LABS: ARTERIAL BLD GAS O2 SATURATION 97.8 mmHg (95-98); ARTERIAL BLOOD GAS BASE EXCESS 0.4 mmol/L (-2-2); ARTERIAL BLOOD GAS PO2 133.3 mmHg (80-100)
[2020-11-09 14:30] LABS: ARTERIAL BLOOD GAS BASE EXCESS -1.6 mmol/L (-2-2); ARTERIAL BLOOD GAS PO2 136.7 mmHg (80-100)
[2020-11-09] MEDS: NOREPINEPHRINE D5W PREMIX 16,000 MCG/500 ML BAG IVPB SCH (14:30)
[2020-11-09 14:33] LABS: ARTERIAL BLD GAS O2 SATURATION 97.4 mmHg (95-98); ARTERIAL BLOOD GAS BASE EXCESS -1.2 mmol/L (-2-2); ARTERIAL BLOOD GAS PO2 115.4 mmHg (80-100); ARTERIAL BLOOD GAS pH 7.236 (7.350-7.450)
[2020-11-09 14:40] LABS: ARTERIAL BLOOD GAS pH 7.176 (7.350-7.450)
[2020-11-09] MEDS: LEVOTHYROXINE SODIUM IVPB SCH (16:00)
[2020-11-09] MEDS: SODIUM CHLORIDE IVPB SCH (16:00)
[2020-11-09] MEDS ORDERED: PT OWN MED DRAWER 7, Y5N ONE (17:31)
[2020-11-10] MEDS: CHLORHEXIDINE GLUCONATE 4% CLEANSER FOR DECOLONIZATION TP SCH ×2 (00:06→23:04)
[2020-11-10] MEDS: DESMOPRESSIN ACETATE 4 MCG/ML AMP IVPB SCH ×3 (00:06→22:55)
[2020-11-10] MEDS: PIPERACILLIN/TAZOB 3.375 GM 3.375 GM in DEXTROSE 5%-WATER - 50 ML IVPB SCH ×3 (03:00→18:26)
[2020-11-10] MEDS: VANCOMYCIN 1 GRAM (PRE-DOCKED) 1,000 MG/250 ML BAG IVPB SCH ×2 (03:28→13:40)
[2020-11-10] MEDS: POTASSIUM CHLORIDE 10 MEQ in DEXTROSE 5%-WATER - 1,000 ML IV SCH (03:28)
[2020-11-10] MEDS ORDERED: DEXTROSE 5%-WATER - 50 ML IVPB ONE ×3 (03:42→18:18)
[2020-11-10] MEDS ORDERED: PIPERACILLIN/TAZOBACTAM 3.375 GM VIAL IVPB ONE ×4 (03:42→18:18)
[2020-11-10 06:33] LABS: ARTERIAL BLD GAS O2 SATURATION 96.1 mmHg (95-98); ARTERIAL BLOOD GAS BASE EXCESS 1.8 mmol/L (-2-2); ARTERIAL BLOOD GAS PO2 81.9 mmHg (80-100)
[2020-11-10 06:34] LABS: ALLENS TEST POSITIVE; VENT MODE A/C; VENT RATE 18
[2020-11-10 06:45] LABS: BASO % 0.1 % (0-2.0); HEMATOCRIT 36.2 % (35.4-49); HEMOGLOBIN 12.1 GM/dL (11.7-16.9); LYMPH % 10.4 % (8-40); MCH 29.3 pg (25.7-33.7); MCHC 33.3 g/dl (32.0-35.9); MEAN CELL VOLUME 88.1 fl (80-96); MEAN PLT VOLUME 9.2 fl (7.5-11.1); MONO % 6.3 % (3.8-10.2); NEUT % 83.2 % (42.8-82.8); PLATELET COUNT 242 K/MM3 (134-434); RBC 4.11 M/mm3 (4.00-5.60); RDW 13.9 % (11.9-15.9); WHITE BLOOD COUNT 11.7 K/mm3 (4.0-10.0)
[2020-11-10 06:59] LABS: INR 1.13 (0.83-1.09); PROTHROMBIN TIME (PATIENT) 13.9 SEC (9.7-13.0)
[2020-11-10 07:01] LABS: ACTIVATED PTT 29.9 SECONDS (25.2-36.5)
[2020-11-10 07:02] LABS: CHLORIDE 118 mmol/L (98-107); POTASSIUM 4.1 mmol/L (3.5-5.1); SODIUM 154 mmol/L (136-145)
[2020-11-10 07:05] LABS: ALBUMIN 1.8 g/dl (3.4-5.0); ANION GAP 5 MMOL/L (8-16); BLOOD UREA NITROGEN 35.6 mg/dL (7-18); CALCIUM 8.2 mg/dL (8.5-10.1); CO2 31 mmol/L (21-32); LIPASE 73 U/L (73-393)
[2020-11-10 07:06] LABS: AMYLASE 65 U/L (25-115); GLUCOSE,RANDOM 104 mg/dL (74-106)
[2020-11-10 07:08] LABS: BILIRUBIN,DIRECT 0.4 mg/dL (0.0-0.2); CREATININE 1.2 mg/dL (0.55-1.3); SGOT/AST 65 U/L (15-37); SGPT/ALT 120 U/L (13-61)
[2020-11-10 07:09] LABS: BILIRUBIN,TOTAL 0.8 mg/dL (0.2-1)
[2020-11-10 07:10] LABS: TOT PROT 5.2 g/dl (6.4-8.2)
[2020-11-10 07:13] LABS: ALK PHOS 173 U/L (45-117)
[2020-11-10 09:51] LABS: ANISOCYTOSIS 0; MACROCYTOSIS 0; PLATELET ESTIMATE NORMAL
[2020-11-10] MEDS: PANTOPRAZOLE SODIUM 40 MG VIAL IVPUSH SCH (11:06)
[2020-11-10] MEDS: methylPREDNISolone NA SUCC 1000 MG/8 ML VIAL IVPB SCH (11:06)
[2020-11-10] MEDS: LEVOTHYROXINE SODIUM IVPB SCH (16:18)
[2020-11-10] MEDS: SODIUM CHLORIDE IVPB SCH (16:18)
[2020-11-10] MEDS: NOREPINEPHRINE D5W PREMIX 16,000 MCG/500 ML BAG IVPB SCH (16:19)
[2020-11-10] MEDS ORDERED: PT OWN MED DRAWER 7, Y5N ONE (22:31)
[2020-11-10] MEDS ORDERED: LABETALOL HCL INJECTION 1,000 MG in DEXTROSE 5%-WATER - 800 ML IV SCH (23:00)
[2020-11-11] MEDS: VANCOMYCIN 1 GRAM (PRE-DOCKED) 1,000 MG/250 ML BAG IVPB SCH ×2 (00:55→12:09)
[2020-11-11] MEDS: LABETALOL HCL INJECTION 1,000 MG in DEXTROSE 5%-WATER - 800 ML IV SCH ×2 (00:57→23:17)
[2020-11-11] MEDS ORDERED: DEXTROSE 5%-WATER - 50 ML IVPB ONE ×3 (01:21→16:15)
[2020-11-11] MEDS ORDERED: PIPERACILLIN/TAZOBACTAM 3.375 GM VIAL IVPB ONE ×3 (01:21→16:14)
[2020-11-11] MEDS: PIPERACILLIN/TAZOB 3.375 GM 3.375 GM in DEXTROSE 5%-WATER - 50 ML IVPB SCH ×2 (01:29→09:23)
[2020-11-11] MEDS ORDERED: PT OWN MED DRAWER 7, Y5N ONE (09:12)
[2020-11-11] MEDS: SODIUM CHLORIDE IVPB SCH (09:16)
[2020-11-11] MEDS: POTASSIUM CHLORIDE 10 MEQ in DEXTROSE 5%-WATER - 1,000 ML IV SCH (09:16)
[2020-11-11] MEDS: LEVOTHYROXINE SODIUM IVPB SCH (09:16)
[2020-11-11] MEDS: DESMOPRESSIN ACETATE 4 MCG/ML AMP IVPB SCH ×2 (09:19→23:16)
[2020-11-11] MEDS: PANTOPRAZOLE SODIUM 40 MG VIAL IVPUSH SCH (09:19)
[2020-11-11] MEDS: methylPREDNISolone NA SUCC 1000 MG/8 ML VIAL IVPB SCH (09:20)
[2020-11-11] MEDS: ARTIFICIAL TEARS (POLYVINYL ALCOHOL) OPTH DROPS OU PRN (09:24)
[2020-11-11] MEDS: CHLORHEXIDINE GLUCONATE 4% CLEANSER FOR DECOLONIZATION TP SCH (21:21)
[2020-11-12] MEDS: VANCOMYCIN 1 GRAM (PRE-DOCKED) 1,000 MG/250 ML BAG IVPB SCH (00:03)
[2020-11-12] MEDS: POTASSIUM CHLORIDE 10 MEQ in DEXTROSE 5%-WATER - 1,000 ML IV SCH ×3 (01:30→18:08)
[2020-11-12] MEDS ORDERED: DEXTROSE 5%-WATER - 50 ML IVPB ONE ×2 (02:41→10:29)
[2020-11-12] MEDS ORDERED: PIPERACILLIN/TAZOBACTAM 3.375 GM VIAL IVPB ONE ×2 (02:41→10:29)
[2020-11-12] MEDS: PIPERACILLIN/TAZOB 3.375 GM 3.375 GM in DEXTROSE 5%-WATER - 50 ML IVPB SCH ×3 (02:45→11:02)
[2020-11-12] MEDS: SODIUM CHLORIDE IVPB SCH (03:41)
[2020-11-12] MEDS: LEVOTHYROXINE SODIUM IVPB SCH (03:41)
[2020-11-12] MEDS: DESMOPRESSIN ACETATE 4 MCG/ML AMP IVPB SCH ×2 (10:40→21:14)
[2020-11-12] MEDS: PANTOPRAZOLE SODIUM 40 MG VIAL IVPUSH SCH (10:42)
[2020-11-12] MEDS: methylPREDNISolone NA SUCC 1000 MG/8 ML VIAL IVPB SCH (11:02)
[2020-11-12] MEDS: CHLORHEXIDINE GLUCONATE 4% CLEANSER FOR DECOLONIZATION TP SCH (21:10)
[2020-11-13 07:14] LABS: BASO % 0.2 % (0-2.0); EOS % 1.3 % (0-4.5); HEMOGLOBIN 11.9 GM/dL (11.7-16.9); LYMPH % 23.7 % (8-40); MEAN CELL VOLUME 85.7 fl (80-96); MEAN PLT VOLUME 8.6 fl (7.5-11.1); MONO % 9.6 % (3.8-10.2); NEUT % 65.2 % (42.8-82.8); PLATELET COUNT 245 K/MM3 (134-434); RBC 3.97 M/mm3 (4.00-5.60); RDW 13.5 % (11.9-15.9); WHITE BLOOD COUNT 8.7 K/mm3 (4.0-10.0)
[2020-11-13 07:49] LABS: POTASSIUM 4.2 mmol/L (3.5-5.1)
[2020-11-13 07:53] LABS: ALBUMIN 1.7 g/dl (3.4-5.0); CALCIUM 7.8 mg/dL (8.5-10.1); MAGNESIUM 1.7 mg/dL (1.8-2.4)
[2020-11-13 07:55] LABS: CREATININE 0.7 mg/dL (0.55-1.3); PHOSPHOROUS 2.4 mg/dL (2.5-4.9)
[2020-11-13 07:56] LABS: BILIRUBIN,TOTAL 1.6 mg/dL (0.2-1); TOT PROT 4.7 g/dl (6.4-8.2)
[2020-11-13 09:24] LABS: ANISOCYTOSIS 1+; MACROCYTOSIS 0; PLATELET ESTIMATE NORMAL
[2020-11-13] MEDS: POTASSIUM CHLORIDE 10 MEQ in DEXTROSE 5%-WATER - 1,000 ML IV SCH (10:12)
[2020-11-13] MEDS: DESMOPRESSIN ACETATE 4 MCG/ML AMP IVPB SCH (10:13)
[2020-11-13] MEDS ORDERED: PT OWN MED DRAWER 7, Y5N ONE (10:15)
[2020-11-13] MEDS: PANTOPRAZOLE SODIUM 40 MG VIAL IVPUSH SCH (10:16)
[2020-11-15] MEDS: ARTIFICIAL TEARS (POLYVINYL ALCOHOL) OPTH DROPS OU PRN ×2 (10:00→17:33)
[2020-11-15 12:56] VITALS: BP 73/48; PULSE 60; TEMP 94.2
[2020-11-15] MEDS: LABETALOL HCL INJECTION 1,000 MG in DEXTROSE 5%-WATER - 800 ML IV SCH (19:05)
[2020-11-15] MEDS: CHLORHEXIDINE GLUCONATE 4% CLEANSER FOR DECOLONIZATION TP SCH ×3 (19:05→21:03)
[2020-11-15] MEDS ORDERED: EPINEPHrine 1:10,000 (P-F SYR) 1 MG/10 ML DISP.SYRIN ONE (21:26)
[2020-11-15] MEDS ORDERED: morphine SULFATE 4 MG/ML VIAL IVPUSH ONE (21:29)
== END 2020-11-15 23:00 | disposition expired | DRG 951 ==
LOC: JER 01:27 → JERBED 03:33 → MERGE 03:33 → JICU 05:26
PROVIDERS: ADMIT Internal Medicine Pulmonary Disease; ATTEND Internal Medicine
PROC: 5A1955Z Respiratory Ventilation, Greater than 96 Consecutive Hours (ICD-10-PCS; principal; 2020-10-30)
PROC: 0BH17EZ Insertion of Endotracheal Airway into Trachea, Via Natural or Artificial Opening (ICD-10-PCS; 2020-10-30)
PROC: 0DH67UZ Insertion of Feeding Device into Stomach, Via Natural or Artificial Opening (ICD-10-PCS; 2020-10-30)
PROC: 3E0G76Z Introduction of Nutritional Substance into Upper GI, Via Natural or Artificial Opening (ICD-10-PCS; 2020-10-30)
PROC: 04HY32Z Insertion of Monitoring Device into Lower Artery, Percutaneous Approach (ICD-10-PCS; 2020-10-30)
PROC: 4A133B1 Monitoring of Arterial Pressure, Peripheral, Percutaneous Approach (ICD-10-PCS; 2020-10-30)
PROC: 4A133J1 Monitoring of Arterial Pulse, Peripheral, Percutaneous Approach (ICD-10-PCS; 2020-10-30)
PROC: 02HV33Z Insertion of Infusion Device into Superior Vena Cava, Percutaneous Approach (ICD-10-PCS; 2020-10-30)
PROC: B548ZZA Ultrasonography of Superior Vena Cava, Guidance (ICD-10-PCS; 2020-11-07)
DX: T40.5X4A Poisoning by cocaine, undetermined, initial encounter (principal); J96.01 Acute respiratory failure with hypoxia; I63.9 Cerebral infarction, unspecified; J69.0 Pneumonitis due to inhalation of food and vomit; R65.21 Severe sepsis with septic shock; G93.6 Cerebral edema; J96.02 Acute respiratory failure with hypercapnia; A41.9 Sepsis, unspecified organism; G93.41 Metabolic encephalopathy; G93.1 Anoxic brain damage, not elsewhere classified; N17.9 Acute kidney failure, unspecified; E23.2 Diabetes insipidus; E87.0 Hyperosmolality and hypernatremia; I24.8 Other forms of acute ischemic heart disease; R56.9 Unspecified convulsions; R06.6 Hiccough; R68.0 Hypothermia, not associated with low environmental temperature; F14.120 Cocaine abuse with intoxication, uncomplicated; E87.6 Hypokalemia; R74.01 Elevation of levels of liver transaminase levels; Y92.009 Unspecified place in unspecified non-institutional (private) residence as the place of occurrence of the external cause; Z66 Do not resuscitate
CPT/HCPCS: 36415; 36600; 70450-TC; 71045-TC-FY; 72125-TC; 76700-TC; 80048; 80053; 80074; 80076; 80307; 81003; 82150; 82272; 82436; 82550; 82553; 82570; 82803; 82962; 83036; 83605; 83690; 83735; 83930; 83935; 84100; 84133; 84146; 84300; 84484; 85025; 85027; 85610; 85730; 86704; 86705; 86706; 86707; 86708; 86709; 86850; 86900; 86901; 87040; 87070; 87077; 87086; 87205; 87340; 87804; 93005; 93010; 93306-TC; 93970-TC; 94002; 99285-25; C9803; G0480; J0131; J1250; J2597; J2997; U0003